=== PATIENT | male | born 1970 | race Two or more races ===

== ENCOUNTER 2024-12-30 19:37 | Inpatient (IN) | payer MEDICAID, SELFPAY ==
[2024-12-30 21:04] VITALS: BP 139/92; PULSE 84; RESP 20; TEMP 37.1; O2SAT 97
--- NOTE | 2024-12-30 21:20 | XR_ITS ---
Examination: CT brain head without contrast. 2-D sagittal coronal reconstructions Date and time of exam:December 30, 2024 1025 hrs. Indications: Onset headaches today Comparison: January 20, 2009 CTDI: vol (mGy):47 DLP: (mGycm):908 Technique: Multiple CT axial sections of the brain have been obtained, 5 mm slice thickness. Contrast has not been administered. 2-D sagittal, coronal reconstructions have been obtained Low dose protocols were performed. One or more of the following dose reduction techniques were used; automated exposure control, adjustment of the mA and/or KV according to patient size, use of iterative reconstruction technique. Findings: No significant ventricular enlargement. Intra-axial or extra-axial hemorrhage density is not seen. No mass effect or midline shift Basal cisterns are not remarkable. Fourth ventricle is midline. Cranial vault intact. Mild chronic ethmoid sphenoid sinusitis Impression: Negative for acute hemorrhage, mass effect or midline shift
--- NOTE | 2024-12-30 21:22 | PD.EDRME ---
Rapid Medical Screening Exam RME Arrival date/time: 12/30/24 19:37 This is a case of 54-year-old male with history of EtOH came in in the emergency room due to headache nausea vomiting dizziness and blurring of vision patient just took alcohol today approximately 6 beers persistence of the symptoms this patient decided to start consult here in the emergency room Chief Complaint: General Adult/Misc Complain Time Seen by Provider: 12/30/24 19:54 Vital signs: Vital Signs Temperature 98.8 F 12/30/24 21:04 Pulse Rate 84 12/30/24 21:04 Respiratory Rate 20 12/30/24 21:04 Blood Pressure 139/92 H 12/30/24 21:04 Pulse Oximetry (%) 97 12/30/24 21:04 Oxygen Delivery Method Room Air 12/30/24 21:04
[2024-12-30 21:57] LABS: Lactate (Lactic Acid) 1.4 mMol/L (0.4-2.0)
[2024-12-30 22:01] LABS: Basophils # (Auto) 0.0 Thou/mm3 (0.0-0.2); Basophils % (Auto) 0 % (0-2.5); Eosinophils # (Auto) 0.0 Thou/mm3 (0.0-0.5); Eosinophils % (Auto) 0 % (0-10); Hematocrit 38.2 % (41.0-53.0); Hemoglobin 13.9 g/dL (13.5-16.0); Immature Granulocytes Auto 0.04 Thou/mm3 (0.00-0.00); Lymphocytes # (Auto) 0.6 Thou/mm3 (1.0-4.8); Lymphocytes % (Auto) 6 % (10-50); Mean Corpuscular HGB Conc 36.4 g/dl (31.0-37.0); Mean Corpuscular Hemoglobin 29.5 pg (25.0-35.0); Mean Corpuscular Volume 81 fL (80-100); Monocytes # (Auto) 0.6 Thou/mm3 (0.0-0.8); Monocytes % (Auto) 6 % (0-12); Neutrophils # (Auto) 8.6 Thou/mm3 (1.8-7.7); Neutrophils % (Auto) 88 % (37-80); Nucleated Red Blood Cell # 0.00 Thou/mm3 (0.00-0.00); Nucleated Red Blood Cell % 0 /100 WBC (0); Platelet Count 116 Thou/mm3 (140-440); RDW Standard Deviation 34.9 fL (35.1-43.9); Red Blood Count 4.71 Miln/mm3 (4.50-5.90); White Blood Count 9.9 Thou/mm3 (3.8-10.6)
[2024-12-30 22:18] LABS: Alanine Aminotransferase 76 U/L (10-49); Albumin, Serum 4.1 gm/dL (3.5-5.0); Albumin/Globulin Ratio 1.7 (1.2-2.2); Alcohol, Blood Medical < 3.0 mg/dL (0-10.0); Alkaline Phosphatase 142 U/L (46-116); Anion Gap 10 (7-16); Aspartate Amino Transferase 115 U/L (0-34); BUN/Creatinine Ratio 6 Ratio (12-20); Bilirubin,Total 1.7 mg/dL (0.3-1.2); Blood Urea Nitrogen 5 mg/dL (9-23); Calcium 8.4 mg/dL (8.3-10.6); Calcium (Corrected) 8.4 mg/dL (8.5-10.1); Carbon Dioxide 27.7 mMol/L (20.0-31.0); Chloride 82 mMol/L (98-107); Creatinine (Component) 0.8 mg/dL (0.6-1.3); Globulin 2.4 gm/dL (2.3-3.5); Glucose 206 mg/dL (74-106); LDH (Lactate Dehydrogenase) 415 U/L (120-246); Osmolality,Calculated 245 (275-295); Potassium 3.4 mMol/L (3.4-5.1); Sodium 120 mMol/L (136-145); Total Protein 6.5 gm/dL (5.7-8.2); eGFR > 60 See Note
[2024-12-31] VITALS (9 sets, daily range): BP systolic 115–166; BP diastolic 76–89; PULSE 69–89; RESP 16–19; TEMP 36.4–37.6; O2SAT 95–100; BMI 26.5
[2024-12-31 00:16] LABS: Collection Type, Urine Voided; Squamous Epithelial Cell,Urine 0 /hpf (0-5)
[2024-12-31 00:28] LABS: Amphetamine/Methamp Scrn,U Negative (Negative); Barbiturate Screen,Urine Negative (Negative); Benzodiazepines Screen,Urine Negative (Negative); Benzoylecgonine Screen, Ur Negative (Negative); Fentanyl Screen,Urine Negative (Negative); Opiate Screen,Urine Negative (Negative); THC Screen,Urine Negative (Negative)
[2024-12-31 00:31] LABS: Bacteria,Urine Rare; Bilirubin,Urine Negative (Negative); Blood,Urine 1+ (Negative); Clarity,Urine Clear (Clear/Hazy); Color,Urine Yellow (Lt Yel-Yel); Glucose, Urine 4+ (Negative); Ketones,Urine 1+ (Negative); Leukocyte Esterase,Urine Negative (Negative); Nitrite,Urine Negative (Negative); PH,Urine 7.0 (5.0-7.0); Protein,Urine 1+ (Neg - Trace); RBC,Urine 2 /hpf (0-3); Specific Gravity,Urine 1.017 (1.001-1.035); Urobilinogen,Urine Negative mg/dL (0.0-1.0); WBC,Urine < 1 /hpf (0-5)
--- NOTE | 2024-12-31 00:37 | EDNOTE_ITS ---
ED General RME/HPI General Chief complaint: Alcohol Stated complaint: ETOH Time Seen by Provider: 12/30/24 19:54 Arrival date/time: 12/30/24 19:37 RME / HPI RME / HPI narrative: 12/30/24 19:37 This is a case of 54-year-old male with history of EtOH came in in the emergency room due to headache nausea vomiting dizziness and blurring of vision patient just took alcohol today approximately 6 beers persistence of the symptoms this patient decided to start consult here in the emergency room Mr Brown is a 54-year-old male past medical significant for alcohol use disorder, anxiety, hypertension and migraines who presented to [facility] on 12/30/2024 with chief complaint of nausea, vomiting, headache, dizziness. He complains of a 3-day history of headache, nausea, vomiting, dizziness, and blurry vision. Headaches are on the occipital area. Dizziness associated weakness, last visit generalized weakness for which he has difficulty standing up without assistance. He reports having experienced 3 episodes of ground-level fall, with no loss of consciousness, urinary, or bowel incontinence. He admits to consuming an average of 17 beers per day. His last drink was at approximately 4 pm yesterday, consisting of 4-6 cans of beer. Related Data Allergies Allergy/AdvReac Type Severity Reaction Status Date / Time No Known Allergies Allergy Mild Uncoded 11/20/08 16:15 Review of Systems Review of Systems Systems Reviewed: All systems reviewed, normal except as documented Past Medical History Past Medical History Comments PMH COMMENT: PMH: Positive for alcohol use disorder, anxiety, hypertension and migraines PSHx: Denies Allergies: NKDFA Social history: -Smoking: Denies -Alcohol Use: Started drinking since he was 18 years old, averaging 12 through 17 beer per day. -Illicit Drug Use: Denies -Occupation: Production Intern Family History: No relevant [facility] ED Exam Narrative Physical exam: Physical Exam General: Awake, anxious. Conversational and non-toxic appearing. HEENT: Normocephalic, atraumatic, mucous membranes moist. Heart: Regular rate and rhythm, no murmurs. Lungs: Clear to auscultation with no wheezing or crackles. Abdomen: Soft, nondistended, nontender, positive bowel sounds. ?No guarding or rebound tenderness. Neurologic: Alert and oriented x3, no gross neurological deficit, and patient able to move all 4 extremities. Extremities: No edema. Tremors BUE. Course Quality Measures none Orders Category Date Time Status COVID-19 Screening Questionnaire NOW Care 12/31/24 00:44 Active Spent Grain Dryer Q4H START 00 Care 12/31/24 00:33 Active Continuous Pulse Oximetry NOW Care 12/31/24 00:33 Completed Decision to Admit X1 Care 12/31/24 00:44 Completed EKG (ED ONLY) *Do not use* NOW Care 12/31/24 01:22 Completed Insert IV NOW Care 12/31/24 00:33 Active Nurse Swallow Screen X1 Care 12/31/24 00:34 Active Strict Intake and Output Routine Care 12/31/24 00:[address] head/brain wo con Stat Exams 12/30/24 21:20 Completed EKG (ED Only) Stat Exams 12/31/24 01:22 Draft Alcohol, Blood Medical Stat Lab 12/30/24 21:41 Completed CBC Stat Lab 12/30/24 21:41 Completed CMP [Comprehensive Metabolic Panel] Stat Lab 12/30/24 21:41 Completed Creatinine,Random Urine Stat Lab 12/31/24 00:20 Completed Drug Screen,Urine Stat Lab 12/31/24 00:11 Completed Electrolytes, Urine Random Stat Lab 12/31/24 00:20 Completed LDH (Lactate Dehydrogenase) Stat Lab 12/30/24 21:41 Completed Lactic Acid [Lactate (Lactic Acid)] Stat Lab 12/30/24 21:41 Completed Urea Nitrogen, Random Urine Stat Lab 12/31/24 00:20 Completed Urinalysis Stat Lab 12/31/24 00:11 Completed LORazepam [Ativan] Med 12/31/24 00:34 Discontinued 1 mg PO X1 ONE Sodium Chloride 0.9% 1000 ml [Ns] 1,000 ml Med 12/31/24 00:33 Discontinued IV 65 mls/hr Vital Signs Vital signs: Vital Signs Temperature 98.8 F 12/30/24 21:04 Pulse Rate 84 12/30/24 21:04 Respiratory Rate 20 12/30/24 21:04 Blood Pressure 139/92 H 12/30/24 21:04 Pulse Oximetry (%) 97 12/30/24 21:04 Oxygen Delivery Method Room Air 12/30/24 21:04 Discharge Plan Problem List Clinical Impression: Acute hyponatremia, Alcohol withdrawal syndrome MDM Narrative MDM hospital course (for use when minimal MDM required): #Moderate hypoosmolar hypovolemic hyponatremia #Suspicion of beer potomania #Alcohol dependence with withdrawal #Transaminitis, suspicion of alcoholic cirrhosis 54-year-old male with past medical history as above presented with dizziness headache nausea vomiting and blurry vision Workup: CBC showed hemoglobin stable 13.9, WBC 9.9, platelet 116 CMP shows sodium 120, glucose 206, chloride 82 renal function within normal limits, corrected calcium 8.4, AST 115, ALT 76, alk phos 142, LDH 415 Urinalysis shows 1+ protein, glucose 4+, ketones 1+, blood 1+ Urine electrolytes ordered Urine drug screen and blood alcohol level normal CT head negative for acute hemorrhage mass effect or midline shift Case discussed with hospitalist team for admission regarding alcohol withdrawal and hyponatremia management. Hospitalist team agrees to admit patient Case discussed with Attending Physician Dr. Jaydon Childress MD Internal Medicine PGY-2 Disclaimer: This note was dictated by speech recognition. Minor errors in airplane cover maker may be present due to voice recognition software. Clinical Information Provided by: patient and family Medical Records reviewed None Meds/Rx considered, not ordered None Labs/Rad/Tests considered, not ordered None Chronic Illness/Social Conditions which may negatively complicate care or outcome(s)-explain: ETOH/drugs/substance abuse EKG EKG not done Labs Lab(s) Interpretation(s): CBC showed hemoglobin stable 13.9, WBC 9.9, platelet 116 CMP shows sodium 120, glucose 206, chloride 82 renal function within normal limits, corrected calcium 8.4, AST 115, ALT 76, alk phos 142, LDH 415 Urinalysis shows 1+ protein, glucose 4+, ketones 1+, blood 1+ Urine electrolytes ordered Urine drug screen and blood alcohol level normal Imaging Imaging Interpretation(s): CT head negative for acute hemorrhage mass effect or midline shift Medication Administration(s) Medication Administration History Chlordiazepoxide HCl (Chlordiazepoxide Hcl 25 Mg Capsule) 25 mg PO Q8HR [facility] Stop: 01/05/25 05:59 Dextrose (Dextrose 50%-Water Inj 50 Ml Syringe) 25 ml IV Q15MIN PRN PRN Reason: BG 50-70 responsive npo pt Stop: 01/30/25 01:38 Dextrose (Dextrose 50%-Water Inj 50 Ml Syringe) 50 ml IV Q15MIN PRN PRN Reason: BG <50 OR BG <70 & pt unresponsive Stop: 01/30/25 01:38 Diazepam (Diazepam Inj 5 Mg/Ml Vial 2 Ml) 5 mg IVP Q2HR PRN PRN Reason: CIWA SCORE 14-19 Stop: 01/05/25 01:45 Diazepam (Diazepam Inj 5 Mg/Ml Vial 2 Ml) 5 mg IVP Q2H PRN PRN Reason: Breakthrough Agitation Folic Acid (Folic Acid 1 Mg Tablet) 1 mg PO QDAY [facility] Stop: 01/30/25 02:09 Last Admin: 12/31/24 02:28 Dose: 1 mg Documented By: NGUYEN Glucagon (Glucagon Inj 1 Mg Vial) 1 mg IM Q15MIN PRN PRN Reason: BG <70, and no IV access Ceftriaxone Sodium/Dextrose (Rocephin/D5w 1gm Iv Premix) 1 gm in 50 mls @ 100 mls/hr IV QDAY [facility] Stop: 01/07/25 08:59 Sodium Chloride 500 ml/ IV (Miscellaneous Supplies) 500 mls @ 40 mls/hr IV X1 ONE Stop: 12/31/24 15:15 Last Admin: 12/31/24 03:28 Dose: 40 mls/hr Documented By: ELMER Potassium Phosphate 22.5 mmol/ (Sodium Chloride) 507.5 mls @ 82.778 mls/hr IV X1 ONE Stop: 12/31/24 08:55 Insulin Human Lispro (Insulin Lispro (Admelog) 1 Unit/0.01 Ml Unit) 0 unit SC Q 6H [facility]; Protocol Stop: 01/30/25 01:44 Last Admin: 12/31/24 02:16 Dose: 1 unit Documented By: NGUYEN Co-signed By: CRISTY Ondansetron HCl (Ondansetron Inj 2 Mg/Ml Inj 2 Ml) 4 mg IVP Q6H PRN; Protocol PRN Reason: NAUSEA OR VOMITING Stop: 01/30/25 01:28 Pantoprazole Sodium (Pantoprazole Inj 40 Mg Vial) 40 mg IVP BID [facility] Stop: 01/30/25 01:29 Last Admin: 12/31/24 02:16 Dose: 40 mg Documented By: NGUYEN Thiamine HCl (Thiamine Inj 100 Mg/Ml Vial 2 Ml) 100 mg IVP QDAY [facility] Stop: 01/30/25 08:59 Discontinued Medications Diazepam (Diazepam Inj 5 Mg/Ml Vial 2 Ml) 2.5 mg IVP Q2H PRN PRN Reason: Breakthrough Agitation Folic Acid (Folic Acid 1 Mg Tablet) 1 mg PO QDAY [facility] Stop: 01/30/25 08:59 Sodium Chloride (Ns) 1,000 mls @ 65 mls/hr IV .[id number] [facility] Stop: 01/30/25 00:32 Last Infusion: 12/31/24 01:55 Dose: Infused Documented By: Admin: 12/31/24 00:47 Dose: 65 mls/hr Documented By: NGUYEN Sodium Chloride 50 ml/ IV (Miscellaneous Supplies) 50 mls @ 300 mls/hr IV X1 ONE Stop: 12/31/24 01:38 Last Infusion: 12/31/24 02:42 Dose: Infused Documented By: Admin: 12/31/24 02:18 Dose: 300 mls/hr Documented By: NGUYEN Thiamine HCl 500 mg/ Sodium (Chloride) 105 mls @ 205 mls/hr IV X1 ONE Stop: 12/31/24 02:15 Last Infusion: 12/31/24 03:22 Dose: Infused Documented By: Admin: 12/31/24 02:17 Dose: 205 mls/hr Documented By: NGUYEN Lorazepam (Lorazepam 0.5 Mg Tablet) 1 mg PO X1 ONE Stop: 12/31/24 00:35 Last Admin: 12/31/24 00:47 Dose: 1 mg Documented By: NGUYEN As Above Diagnosis Differential Diagnosis ED Complaint MDM: Alcohol dependence with withdrawal, symptomatic hyponatremia Diagnoses ruled out and/or further discussions: Symptomatic hyponatremia
[2024-12-31] MEDS: SODIUM CHLORIDE 0.9% 1000 ML 1,000 ML 65 ML IV (00:47)
[2024-12-31 01:20] LABS: Chloride,Urine Random 80.1 mMol/L (55.0-125.0); Creatinine,Random Urine 111 mg/dL (30-125); Potassium,Urine Random 54 mMol/L (12-62); Sodium,Urine Random 85.4 mMol/L (20.0-110.0); Urea Nitrogen, Random Urine 315.0 mg/dL (350.0-1000.0)
--- NOTE | 2024-12-31 01:22 | EKG_ITS ---
[facility] Test Date: 2024-12-31 Pat Name: JANELLE DUMONT Department: Room: - Gender: Male [employer]: : 1970 Requested By: Juan Bautista Order Number: [id number] Reading MD: Juan Bautista Measurements Intervals [place] Rate: 82 P: 57 KS: 165 QRS: 73 QRSD: 94 T: 64 QT: 390 QTc: 458 Interpretive Statements SINUS RHYTHM No previous ECG available for comparison /store/S0/[id number]/ecg/[id number].pdf
--- NOTE | 2024-12-31 01:51 | XR_ITS ---
Examination: Abdomen sonogram, Limited Date and time of exam: December 31, 2024, 0203 hrs. Indications: Abdominal pain today Technique: Real-time goodman scale transabdominal sonographic images of the upper abdomen obtained. Findings: Normal gallbladder. Normal common bile duct 0.4 cm Pancreatic head 2.0 cm Liver 12.7 cm fatty infiltration Normal hepatopedal portal venous flow Patent IVC Impression: Normal gallbladder
--- NOTE | 2024-12-31 01:56 | ESHP_ITS ---
Documentation for date of: 12/31/24 [facility] History of Present Illness History of present illness: Patient is a 54-year-old male past medical significant for alcohol use disorder, anxiety, hypertension presented to the ED on 12/30/2024 with chief complaint of nausea, vomiting, headache, dizziness. The patient presents with a 3-day history of headache, nausea, vomiting, dizziness, and blurry vision. Headaches are on the occipital area. Dizziness associated weakness, last visit generalized weakness for which he has difficulty standing up without assistance. He reports having experienced 3 episodes of ground-level fall, with no loss of consciousness, urinary, or bowel incontinence. The patient admits to consuming an average of 17 beers per day. His last drink was at approximately 4 pm yesterday, consisting of 4-6 cans of beer. Regarding the vomiting, the patient noted the presence of blood in his emesis but denies any dark stools or hematochezia. The patient's brother, who was present at the bedside, shared that he brought the patient back from [place] several months ago due to concerns about the patient's excessive drinking. The patient's family and friends had expressed concern about his alcohol use, prompting his brother to seek further treatment for him. In addition, the patient reports experiencing visual and auditory hallucinations, specifically hearing his brother's voice when he is drunk. The patient denies chest pain, shortness of breath, abdominal pain, fever, chills, melena, or hematochezia. Patient currently does not have a primary care provider in [place] that he follows. Patient is aware about his clinical presentation, and is interested in help with his alcohol dependence. ED Course: -Initial vitals were BP 139/92, pulse 84, RR 20, temp 98.8, O2 sat 97% on room air. -Labs significant for sodium 120, osmolality 245,chloride 82, glucose 206, bili 1.7, AST 115, ALT 76 -Imaging included a CT head negative for acute hemorrhage. EKG showed sinus rhythm -In the ED, patient was given 0.5 L of NS and ativan 1 mg x 1 -Patient was admitted for Review of Systems Review of systems otherwise negative except what is mentioned above. Past Medical History: Hypertension, anxiety Family History: Not contributory Surgical History: None Social History: Denies history of smoking, denies recreational drug use. Started drinking since he was 18 years old, averaging 12 through 17 beer per day. Current Medications: Antihypertensive (but patient is not sure) Allergies: No known drug allergies Exam Vital Signs Temp Pulse Resp BP Pulse Ox O2 Del Method 99.0 F 88 16 166/89 H 100 Room Air 12/31/24 00:14 12/31/24 00:36 12/31/24 00:14 12/31/24 00:14 12/31/24 00:14 12/31/24 00:14 Narrative Exam General: Alert, no acute distress.Conversational, toxic appearing, flushed Skin: Warm, dry, intact. No rash or ecchymoses. Head: Normocephalic, atraumatic. Eye: Injected conjunctiva, negative for papilledema on funduscopy exam PERRL. Throat: Dry mucosa moist. No obvious lesions in oropharynx. Cardiovascular: Regular rate and rhythm, no murmur, +S1/S2. Respiratory: Lungs are clear to auscultation, respirations unlabored, no crackles, no wheezing. Gastrointestinal: Soft, nontender, non-distended. No guarding or rebound tenderness. Extremities: No edema, no cyanosis, no clubbing. Neuro: Alert and oriented x3.No focal deficits observed. Conversant, moving all extremities. No overt cerebellar signs/incoordination. Psychiatric: Cooperative, appropriate affect Results: Labs 01/02/25 05:15 01/02/25 05:15 Labs: Short CBC 12/30/24 Range/Units 21:41 WBC 9.9 (3.8-10.6) Thou/mm3 Hgb 13.9 (13.5-16.0) g/dL Hct 38.2 L (41.0-53.0) % Plt Count 116 L (140-440) Thou/mm3 BMP 12/30/24 21:41 Sodium 120 L Potassium 3.4 Chloride 82 L Carbon Dioxide 27.7 BUN 5 L Creatinine 0.8 Glucose 206 H Calcium 8.4 Liver Function 12/30/24 Range/Units 21:41 Total Bilirubin 1.7 H (0.3-1.2) mg/dL AST 115 H (0-34) U/L ALT 76 H (10-49) U/L Alkaline Phosphatase 142 H (46-116) U/L Albumin 4.1 (3.5-5.0) gm/dL Urine 12/31/24 Range/Units 00:11 Urine Color Yellow (Lt Yel-Yel) Urine Clarity Clear (Clear/Hazy) Urine pH 7.0 (5.0-7.0) Ur Specific [place] 1.017 (1.001-1.035) Urine Protein 1+ A (Neg - Trace) Urine Glucose (UA) 4+ A (Negative) Quality Measures Quality Measures VTE prophylaxis Medications Home Medications and Allergies Allergies Allergy/AdvReac Type Severity Reaction Status Date / Time No Known Allergies Allergy Unverified 12/31/24 10:33 Visit Medications Dextrose (Dextrose 50%-Water Inj 50 Ml Syringe) 25 ml IV Q15MIN PRN PRN Reason: BG 50-70 responsive npo pt Stop: 01/30/25 01:38 Dextrose (Dextrose 50%-Water Inj 50 Ml Syringe) 50 ml IV Q15MIN PRN PRN Reason: BG <50 OR BG <70 & pt unresponsive Stop: 01/30/25 01:38 Diazepam (Diazepam Inj 5 Mg/Ml Vial 2 Ml) 5 mg IVP Q2HR PRN PRN Reason: CIWA SCORE 14-19 Stop: 01/05/25 01:45 Diazepam (Diazepam Inj 5 Mg/Ml Vial 2 Ml) 2.5 mg IVP Q2H PRN PRN Reason: Breakthrough Agitation Folic Acid (Folic Acid 1 Mg Tablet) 1 mg PO QDAY [facility] Stop: 01/30/25 08:59 Glucagon (Glucagon Inj 1 Mg Vial) 1 mg IM Q15MIN PRN PRN Reason: BG <70, and no IV access Sodium Chloride 50 ml/ IV (Miscellaneous Supplies) 50 mls @ 300 mls/hr IV X1 ONE Stop: 12/31/24 01:38 Thiamine HCl 500 mg/ Sodium (Chloride) 105 mls @ 205 mls/hr IV X1 ONE Stop: 12/31/24 02:15 Insulin Human Lispro (Insulin Lispro (Admelog) 1 Unit/0.01 Ml Unit) 0 unit SC Q6H [facility]; Protocol Stop: 01/30/25 01:44 Ondansetron HCl (Ondansetron Inj 2 Mg/Ml Inj 2 Ml) 4 mg IVP Q6H PRN; Protocol PRN Reason: NAUSEA OR VOMITING Stop: 01/30/25 01:28 Pantoprazole Sodium (Pantoprazole Inj 40 Mg Vial) 40 mg IVP BID [facility] Stop: 01/30/25 01:29 Thiamine HCl (Thiamine Inj 100 Mg/Ml Vial 2 Ml) 100 mg IVP QDAY [facility] Stop: 01/30/25 08:59 Discontinued Medications Sodium Chloride (Ns) 1,000 mls @ 65 mls/hr IV .[id number] [facility] Stop: 01/30/25 00:32 Last Admin: 12/31/24 00:47 Dose: 65 mls/hr Lorazepam (Lorazepam 0.5 Mg Tablet) 1 mg PO X1 ONE Stop: 12/31/24 00:35 Last Admin: 12/31/24 00:47 Dose: 1 mg Assessment & Plan Plan Patient is a 54-year-old male past medical significant for alcohol use disorder, anxiety, hypertension presented to the ED on 12/30/2024 with chief complaint of nausea, vomiting, headache, dizziness. Admitted for management evaluation of symptomatic hyponatremia and alcohol withdrawal. #Symptomatic hyponatremia 2/2 #Beer Potomania #Alcohol withdrawal #Alcohol use disorder, chronic #Transaminits Patient presented with headache, nausea, vomiting, dizziness and generalized weakness. On physical examination conjunctival injection, look flushed, severely dehydrated. Has chronic history of alcohol use disorder, drinks average 12-17 beers can per day. CHEM panel significant for hyponatremia with sodium of 120, chloride 82, osmolality 245, T. bili 1.7. Urine sodium 85.4. HypoNa secondary to beer potomania, with the patient history of heavy beer consumption causes severe dilutional hyponatremia impaired body ability to regulate water and fluid balance. Leading to symptoms such as nausea, vomiting, and headache, weakness patient. Na corrected to 122 with on 500cc hypertonic push- 122> 123> 128- stops hypertonic IVF AST 115, ALT 73 indicating possible alcohol hepatitis. CIWA 10. 500cc hypertonic NS at 40mls/hr-stop at Ba 129 - Started IV NS at 75mls/hr - Na [id number] change to Q4H when Na 130 - Fluid restriction - Strict ins and outs - Started CIWA protocol - Protonix 40 mg IV BID - Zofran 4 mg Q6h prn - Abdominal ultrasound ordered, pending read - Nephrology consulted-recommendation appreciated - Ammonia, pending - Thiamine 100mg IVP Qday - Folic acid 1 mg daily - Encourage alcohol cessation #Upper versus lower GI bleed #Hematemesis DDX: esophageal varices vs josefa-aguillon tear vs liver cirrhosis Concern for possible esophageal failure given the patient hematemesis in the setting of chronic alcohol use. Cirrhosis given patient history chronic alcohol consumption is a well-established rish factor that may lead to liver cirrhosis/ fibrosis. Current H&H is stable - Hepatitis panel, pending - Stool occult ordered, pending - Diet n.p.o. - GI consulted-recommendation appreciated - Type and screen - Monitor H&H - Transfusing for Hgb <7 or symptomatic. - Follow-up INR and PTT #History of anxiety #History of hypertension Chronic condition, patient is on no medication for anxiety. Does not recalled anti-hypertensive meds -Continue to monitor vitals -Pending med recc Hospital management: Lines: peripheral IV Diet: NPO GI prophylaxis: pantoprazole DVT prophylaxis: SCDs Disposition: tele symptomatic management and alcohol use disorder evaluation and management CODE STATUS: Full code Patient seen and assessed under supervision of attending physician Dr.Alhalaibeh Kimi Linares MD PGY-1, Internal Medicine Please note: this document was transcribed using voice recognition technology; minor inaccuracies may be present. Attending Provider Attestation/Addendum After examination of the patient and review of the clinical data I feel that this patient needs admission to the hospital for further treatment/evaluation. Plan of care discussed with patient and is in agreement. I Asmita Briggs MD, attest that I was physically present for mckeon portions of evaluation, and examined patient, labs and imagings and plan of care were discussed with IM residents team, and I agree with the findings and plans documented above.
[2024-12-31] MEDS: INSULIN LISPRO (AdmeLOG) 1 UNIT/0.01 ML UNIT SC (02:16)
[2024-12-31] MEDS: THIAMINE INJ 500 MG in SODIUM CHLORIDE 0.9% 100 ML 205 MG IV (02:17)
[2024-12-31] MEDS: SODIUM CHLORIDE 3%(Hypertonic) 50 ML in PRE-MIXED 1 BAG 300 ML IV (02:18)
[2024-12-31] MEDS: FOLIC ACID 1 MG TABLET PO (02:28)
[2024-12-31 02:32] LABS: Glucose Estimated Average 128 mg/dL (80-131); Hemoglobin A1C 6.1 % Hgb (4.8-6.0)
[2024-12-31 02:42] LABS: Folate 21.55 ng/mL (>5.38); Magnesium 1.9 mg/dL (1.6-2.6); Phosphorous 2.2 mg/dL (2.4-5.1); Sodium 122 mMol/L (136-145); Thyroid Stimulating Hormone 1.19 uIU/mL (0.55-4.78); Vitamin B12 1345 pg/mL (211-911)
[2024-12-31 03:25] LABS: Sodium 123 mMol/L (136-145)
[2024-12-31] MEDS: SODIUM CHLORIDE 3%(Hypertonic) 500 ML in PRE-MIXED 1 BAG 40 ML IV (03:28)
--- NOTE | 2024-12-31 03:50 | PC.NURSE ---
DR RIDER MADE AWARE THAT WE DID NOT HAVE POTASSIUM PHOSPHATE 22.5 MMOL IN STOCK.
[2024-12-31 05:38] LABS: Basophils # (Auto) 0.0 Thou/mm3 (0.0-0.2); Basophils % (Auto) 0 % (0-2.5); Eosinophils # (Auto) 0.0 Thou/mm3 (0.0-0.5); Eosinophils % (Auto) 0 % (0-10); Hematocrit 35.2 % (41.0-53.0); Hemoglobin 13.1 g/dL (13.5-16.0); Immature Granulocytes Auto 0.03 Thou/mm3 (0.00-0.00); Lymphocytes # (Auto) 1.0 Thou/mm3 (1.0-4.8); Lymphocytes % (Auto) 9 % (10-50); Mean Corpuscular HGB Conc 37.2 g/dl (31.0-37.0); Mean Corpuscular Hemoglobin 30.4 pg (25.0-35.0); Mean Corpuscular Volume 82 fL (80-100); Monocytes # (Auto) 0.8 Thou/mm3 (0.0-0.8); Monocytes % (Auto) 8 % (0-12); Neutrophils # (Auto) 8.3 Thou/mm3 (1.8-7.7); Neutrophils % (Auto) 82 % (37-80); Nucleated Red Blood Cell # 0.00 Thou/mm3 (0.00-0.00); Nucleated Red Blood Cell % 0 /100 WBC (0); Platelet Count 93 Thou/mm3 (140-440); RDW Standard Deviation 35.8 fL (35.1-43.9); Red Blood Count 4.31 Miln/mm3 (4.50-5.90); White Blood Count 10.2 Thou/mm3 (3.8-10.6)
[2024-12-31 05:58] LABS: Ammonia 33 uMol/L (11-32)
[2024-12-31 06:07] LABS: Alanine Aminotransferase 62 U/L (10-49); Albumin, Serum 3.7 gm/dL (3.5-5.0); Albumin/Globulin Ratio 1.8 (1.2-2.2); Alkaline Phosphatase 119 U/L (46-116); Anion Gap 10 (7-16); Aspartate Amino Transferase 89 U/L (0-34); BUN/Creatinine Ratio 8 Ratio (12-20); Bilirubin,Total 1.4 mg/dL (0.3-1.2); Blood Urea Nitrogen 6 mg/dL (9-23); Calcium 8.1 mg/dL (8.3-10.6); Calcium (Corrected) 8.3 mg/dL (8.5-10.1); Carbon Dioxide 27.5 mMol/L (20.0-31.0); Chloride 91 mMol/L (98-107); Creatinine (Component) 0.8 mg/dL (0.6-1.3); Estimated Creatinine Clearance 89.2 mL/min (>60); Globulin 2.1 gm/dL (2.3-3.5); Glucose 94 mg/dL (74-106); Magnesium 2.1 mg/dL (1.6-2.6); Osmolality,Calculated 254 (275-295); Potassium 3.0 mMol/L (3.4-5.1); Sodium 128 mMol/L (136-145); Total Protein 5.8 gm/dL (5.7-8.2); eGFR > 60 See Note
[2024-12-31] MEDS: SODIUM CHLORIDE 0.9% 1000 ML 1,000 ML 75 ML IV (06:33)
[2024-12-31 06:41] LABS: Sodium 128 mMol/L (136-145)
[2024-12-31 07:06] LABS: Hepatitis A Antibody IgM Non Reactive (Non React); Hepatitis B Core Antibody IgM Non Reactive (Non React); Hepatitis B Surface Antigen Non Reactive (Non React)
[2024-12-31 07:48] LABS: Sodium 129 mMol/L (136-145)
[2024-12-31] MEDS: THIAMINE INJ 100 MG/ML VIAL 2 ML IVP (08:10)
[2024-12-31] MEDS: cefTRIAXone/D5w 1gm IV premix 1 GM/50 ML BAG IV (08:11)
[2024-12-31] MEDS: POTASSIUM PHOS 22.5 MMOL in SODIUM CHLORIDE 0.9% 500 ML 500 ML 82.778 MMOL IV (08:49)
[2024-12-31] MEDS: DEXTROSE 5%-WATER 1,000 ML 60 ML IV (10:37)
[2024-12-31 11:21] LABS: Albumin, Serum 3.6 gm/dL (3.5-5.0); Anion Gap 9 (7-16); BUN/Creatinine Ratio 8 Ratio (12-20); Blood Urea Nitrogen 6 mg/dL (9-23); Calcium 7.9 mg/dL (8.3-10.6); Calcium (Corrected) 8.2 mg/dL (8.5-10.1); Carbon Dioxide 26.6 mMol/L (20.0-31.0); Chloride 93 mMol/L (98-107); Creatinine (Component) 0.8 mg/dL (0.6-1.3); Estimated Creatinine Clearance 82.5 mL/min (>60); Glucose 103 mg/dL (74-106); Osmolality,Calculated 256 (275-295); Phosphorous 3.3 mg/dL (2.4-5.1); Potassium 3.1 mMol/L (3.4-5.1); Sodium 129 mMol/L (136-145); eGFR > 60 See Note
[2024-12-31 12:56] LABS: Sodium 130 mMol/L (136-145)
--- NOTE | 2024-12-31 13:08 | ESPR_ITS ---
<Statement entered by Jerome Quintanilla MD - 12/31/24 20:13> Overnight admission for hyponatremia, alcohol withdrawal, and GI bleed. Seen and examined at bedside and CIWA score of 2-3 for anxiety and headache. Na remains difficult to control given that he had increase more than 6 mEq in 24 hours and peaked at 130. Given overcorrection we will start D5W with goal of less than 130 given that this is hospital day 2. Nephrology also following for hyponatremia. Continue CIWA protocol, and GI consulted for GI bleed. ----- Note reviewed and agree with care plan as documented. Please refer to the note below for further details. Plan discussed with attending physician Dr. Jaleel Quintanilla MD PGY-2 Internal Medicine Documentation for date of: 12/31/24 Subjective Subjective Interval history: Patient was seen and examined at bedside. No acute events took place overnight. Patient complains of headache, agitation, anxiety. Noted to have tremors. Denies heightened sensitivity to light or noise. Improved nausea or vomiting. Patient lives in [place] and has been traveling to [place] to visit brother who is accompanying the patient. Had last drink yesterday late afternoon. CIWA 11. Exam Vital Signs Temp Pulse Resp BP Pulse Ox O2 Del Method 98.0 F 75 16 144/85 H 98 Room Air 12/31/24 08:00 12/31/24 08:00 12/31/24 08:00 12/31/24 08:00 12/31/24 08:00 12/31/24 08:00 Narrative Exam General: Alert, no acute distress.Conversational, toxic appearing, flushed Skin: Warm, dry, intact. No rash or ecchymoses. Head: Normocephalic, atraumatic. Eye: Injected conjunctiva, negative for papilledema on funduscopy exam PERRL. Throat: Dry mucosa moist. No obvious lesions in oropharynx. Cardiovascular: Regular rate and rhythm, no murmur, +S1/S2. Respiratory: Lungs are clear to auscultation, respirations unlabored, no crackles, no wheezing. Gastrointestinal: Soft, nontender, non-distended. No guarding or rebound tenderness. Extremities: No edema, no cyanosis, no clubbing. Neuro: Alert and oriented x3.No focal deficits observed. Conversant, moving all extremities. No overt cerebellar signs/incoordination. Psychiatric: Cooperative, appropriate affect Objective Labs 12/31/24 05:23 12/31/24 22:34 Labs: Laboratory Results - last 24 hr 12/30/24 12/31/24 12/31/24 21:41 00:11 00:20 WBC 9.9 RBC 4.71 Hgb 13.9 Hct 38.2 L MCV 81 MCH 29.5 MCHC 36.4 RDW Std Deviation 34.9 L Plt Count 116 L Neut % (Auto) 88 H Lymph % (Auto) 6 L Love % (Auto) 6 Eos % (Auto) 0 Baso % (Auto) 0 Neut # (Auto) 8.6 H Lymph # (Auto) 0.6 L Love # (Auto) 0.6 Eos # (Auto) 0.0 Baso # (Auto) 0.0 Immature Gran # (Auto) 0.04 H Absolute Nucleated RBC 0.00 Immature Gran % 0 Nucleated RBC % 0 Sodium 120 L Potassium 3.4 Chloride 82 L Carbon Dioxide 27.7 Anion Gap 10 BUN 5 L Creatinine 0.8 Estim Creat Clear Calc Not Performed. eGFR > 60 BUN/Creatinine Ratio 6 L Glucose [address] Glu mg/dL Hemoglobin A1c Calculated Osmolality 245 L Lactic Acid 1.4 Calcium 8.4 Corrected Calcium 8.4 L Phosphorus Magnesium Total Bilirubin 1.7 H AST 115 H ALT 76 H Alkaline Phosphatase 142 H Ammonia Lactate Dehydrogenase 415 H Total Protein 6.5 Albumin 4.1 Globulin 2.4 Albumin/Globulin Ratio 1.7 Vitamin B12 Folate TSH Ur Collection Type Voided Urine Color Yellow Urine Clarity Clear Urine pH 7.0 Ur Specific [place] 1.017 Urine Protein 1+ A Urine Glucose (UA) 4+ A Urine Ketones 1+ A Urine Blood 1+ A Urine Nitrite Negative Urine Bilirubin Negative Urine Urobilinogen (Auto) Negative Ur Leukocyte Esterase Negative Urine RBC 2 Urine WBC < 1 Ur Squamous Epith Cells 0 Urine Bacteria Rare Ur Random Creatinine 111 Ur Random Sodium 85.4 Ur Random Potassium 54 Ur Random Chloride 80.1 Ur Random Urea Nitrogn 315.0 L Urine Opiates Screen Negative Urine Fentanyl Screen Negative Ur Barbiturates Screen Negative U Amphetamin/Meth Scrn Negative U Benzodiazepines Scrn Negative U Cocaine Metab Screen Negative U Marijuana (THC) Screen Negative Ethyl Alcohol < 3.0 Hepatitis A IgM Ab Hep Bs Antigen Hep B Core IgM Ab Blood Type Antibody Screen Blood Bank Wristband ID 12/31/24 12/31/24 12/31/24 01:56 03:05 05:23 WBC 10.2 RBC 4.31 L Hgb 13.1 L Hct 35.2 L MCV 82 MCH 30.4 MCHC 37.2 H RDW Std Deviation 35.8 Plt Count 93 L Neut % (Auto) 82 H Lymph % (Auto) 9 L Love % (Auto) 8 Eos % (Auto) 0 Baso % (Auto) 0 Neut # (Auto) 8.3 H Lymph # (Auto) 1.0 Love # (Auto) 0.8 Eos # (Auto) 0.0 Baso # (Auto) 0.0 Immature Gran # (Auto) 0.03 H Absolute Nucleated RBC 0.00 Immature Gran % 0 Nucleated RBC % 0 Sodium 122 L 123 L 128 L Potassium 3.0 L Chloride 91 L Carbon Dioxide 27.5 Anion Gap 10 BUN 6 L Creatinine 0.8 Estim Creat Clear Calc 89.2 eGFR > 60 BUN/Creatinine Ratio 8 L Glucose [address] Glu mg/dL 128 Hemoglobin A1c 6.1 H Calculated Osmolality 254 L Lactic Acid Calcium 8.1 L Corrected Calcium 8.3 L Phosphorus 2.2 L Magnesium 1.9 2.1 Total Bilirubin 1.4 H AST 89 H ALT 62 H Alkaline Phosphatase 119 H D Ammonia 33 H Lactate Dehydrogenase Total Protein 5.8 Albumin 3.7 Globulin 2.1 L Albumin/Globulin Ratio 1.8 Vitamin B12 1345 H Folate 21.55 TSH 1.19 Ur Collection Type Urine Color Urine Clarity Urine pH Ur Specific [place] Urine Protein Urine Glucose (UA) Urine Ketones Urine Blood Urine Nitrite Urine Bilirubin Urine Urobilinogen (Auto) Ur Leukocyte Esterase Urine RBC Urine WBC Ur Squamous Epith Cells Urine Bacteria Ur Random Creatinine Ur Random Sodium Ur Random Potassium Ur Random Chloride Ur Random Urea Nitrogn Urine Opiates Screen Urine Fentanyl Screen Ur Barbiturates Screen U Amphetamin/Meth Scrn U Benzodiazepines Scrn U Cocaine Metab Screen U Marijuana (THC) Screen Ethyl Alcohol Hepatitis A IgM Ab Non Reactive Hep Bs Antigen Non Reactive Hep B Core IgM Ab Non Reactive Blood Type O Positive Antibody Screen NEGATIVE Blood Bank Wristband ID Yes 12/31/24 12/31/24 12/31/24 06:21 07:30 10:40 WBC RBC Hgb Hct MCV MCH MCHC RDW Std Deviation Plt Count Neut % (Auto) Lymph % (Auto) Love % (Auto) Eos % (Auto) Baso % (Auto) Neut # (Auto) Lymph # (Auto) Love # (Auto) Eos # (Auto) Baso # (Auto) Immature Gran # (Auto) Absolute Nucleated RBC Immature Gran % Nucleated RBC % Sodium 128 L 129 L 129 L Potassium 3.1 L Chloride 93 L Carbon Dioxide 26.6 Anion Gap 9 BUN 6 L Creatinine 0.8 Estim Creat Clear Calc 82.5 eGFR > 60 BUN/Creatinine Ratio 8 L Glucose [address] Glu mg/dL Hemoglobin A1c Calculated Osmolality 256 L Lactic Acid Calcium 7.9 L Corrected Calcium 8.2 L Phosphorus 3.3 Magnesium Total Bilirubin AST ALT Alkaline Phosphatase Ammonia Lactate Dehydrogenase Total Protein Albumin 3.6 Globulin Albumin/Globulin Ratio Vitamin B12 Folate TSH Ur Collection Type Urine Color Urine Clarity Urine pH Ur Specific [place] Urine Protein Urine Glucose (UA) Urine Ketones Urine Blood Urine Nitrite Urine Bilirubin Urine Urobilinogen (Auto) Ur Leukocyte Esterase Urine RBC Urine WBC Ur Squamous Epith Cells Urine Bacteria Ur Random Creatinine Ur Random Sodium Ur Random Potassium Ur Random Chloride Ur Random Urea Nitrogn Urine Opiates Screen Urine Fentanyl Screen Ur Barbiturates Screen U Amphetamin/Meth Scrn U Benzodiazepines Scrn U Cocaine Metab Screen U Marijuana (THC) Screen Ethyl Alcohol Hepatitis A IgM Ab Hep Bs Antigen Hep B Core IgM Ab Blood Type Antibody Screen Blood Bank Wristband ID 12/31/24 12:18 WBC RBC Hgb Hct MCV MCH MCHC RDW Std Deviation Plt Count Neut % (Auto) Lymph % (Auto) Love % (Auto) Eos % (Auto) Baso % (Auto) Neut # (Auto) Lymph # (Auto) Love # (Auto) Eos # (Auto) Baso # (Auto) Immature Gran # (Auto) Absolute Nucleated RBC Immature Gran % Nucleated RBC % Sodium 130 L Potassium Chloride Carbon Dioxide Anion Gap BUN Creatinine Estim Creat Clear Calc eGFR BUN/Creatinine Ratio Glucose Estimated Ave Glu mg/dL Hemoglobin A1c Calculated Osmolality Lactic Acid Calcium Corrected Calcium Phosphorus Magnesium Total Bilirubin AST ALT Alkaline Phosphatase Ammonia Lactate Dehydrogenase Total Protein Albumin Globulin Albumin/Globulin Ratio Vitamin B12 Folate TSH Ur Collection Type Urine Color Urine Clarity Urine pH Ur Specific [place] Urine Protein Urine Glucose (UA) Urine Ketones Urine Blood Urine Nitrite Urine Bilirubin Urine Urobilinogen (Auto) Ur Leukocyte Esterase Urine RBC Urine WBC Ur Squamous Epith Cells Urine Bacteria Ur Random Creatinine Ur Random Sodium Ur Random Potassium Ur Random Chloride Ur Random Urea Nitrogn Urine Opiates Screen Urine Fentanyl Screen Ur Barbiturates Screen U Amphetamin/Meth Scrn U Benzodiazepines Scrn U Cocaine Metab Screen U Marijuana (THC) Screen Ethyl Alcohol Hepatitis A IgM Ab Hep Bs Antigen Hep B Core IgM Ab Blood Type Antibody Screen Blood Bank Wristband ID Quality Measures Quality Measures VTE prophylaxis Assessment & Plan Assessment Current Active Medications: Generic Name Dose Route Start Last Admin Trade Name Freq PRN Reason Stop Dose Admin Chlordiazepoxide HCl 25 mg 12/31/24 06:00 12/31/24 06:11 Chlordiazepoxide Hcl 25 Mg Capsule PO 01/05/25 05:59 25 mg Q8HR NICOLAS Administration Dextrose 25 ml 12/31/24 01:39 Dextrose 50%-Water Inj 50 Ml Syringe IV 01/30/25 01:38 Q15MIN PRN BG 50-70 responsive npo pt Dextrose 50 ml 12/31/24 01:39 Dextrose 50%-Water Inj 50 Ml Syringe IV 01/30/25 01:38 Q15MIN PRN BG <50 OR BG <70 & pt unresponsive Diazepam 5 mg 12/31/24 03:06 Diazepam Inj 5 Mg/Ml Vial 2 Ml IVP Q2H PRN Breakthrough Agitation Folic Acid 1 mg 12/31/24 02:10 12/31/24 08:11 Folic Acid 1 Mg Tablet PO 01/30/25 02:09 Not Given QDAY NICOLAS Glucagon 1 mg 12/31/24 01:39 Glucagon Inj 1 Mg Vial IM Q15MIN PRN BG <70, and no IV access Ceftriaxone Sodium/Dextrose 1 gm in 50 mls @ 100 mls/hr 12/31/24 09:00 12/31/24 08:11 Rocephin/D5w 1gm Iv Premix IV 01/07/25 08:59 100 mls/hr QDAY NICOLAS Administration Dextrose 1,000 mls @ 60 mls/hr 12/31/24 10:30 12/31/24 10:37 D5w IV 01/01/25 03:09 60 mls/hr .[id number] ONE Administration Insulin Human Lispro 0 unit 12/31/24 12:00 12/31/24 12:16 Insulin Lispro (Admelog) 1 Unit/0.01 Ml Unit SC 01/30/25 01:44 Not Given Q6HR NICOLAS Protocol Lorazepam 0.5 mg 12/31/24 08:31 Lorazepam 0.5 Mg Tablet PO 01/05/25 08:30 Q4HR PRN CIWA Score 2-6 Lorazepam 1 mg 12/31/24 08:31 12/31/24 08:49 Lorazepam 0.5 Mg Tablet PO 01/05/25 08:30 1 mg Q4HR PRN Administration CIWA SCORE 7-11 Lorazepam 2 mg 12/31/24 08:31 Lorazepam 0.5 Mg Tablet PO 01/05/25 08:30 Q4HR PRN CIWA SCORE 12-15 Ondansetron HCl 4 mg 12/31/24 01:29 Ondansetron Inj 2 Mg/Ml Inj 2 Ml IVP 01/30/25 01:28 Q6H PRN NAUSEA OR VOMITING Protocol Pantoprazole Sodium 40 mg 12/31/24 01:30 12/31/24 08:10 Pantoprazole Inj 40 Mg Vial IVP 01/30/25 01:29 40 mg BID NICOLAS Administration Thiamine HCl 100 mg 12/31/24 09:00 12/31/24 08:10 Thiamine Inj 100 Mg/Ml Vial 2 Ml IVP 01/30/25 08:59 100 mg QDAY NICOLAS Administration Plan Plan Patient is a 54-year-old male past medical significant for alcohol use disorder, anxiety, hypertension presented to the ED on 12/30/2024 with chief complaint of nausea, vomiting, headache, dizziness. Admitted for management evaluation of symptomatic hyponatremia and alcohol withdrawal. #Symptomatic hyponatremia 2/2 #Beer Potomania #Alcohol use disorder, chronic #Transaminits Patient presented with headache, nausea, vomiting, dizziness and generalized weakness. On physical examination conjunctival injection, look flushed, severely dehydrated. Has chronic history of alcohol use disorder, drinks average 12-17 beers can per day. CHEM panel significant for hyponatremia with sodium of 120, chloride 82, osmolality 245, T. bili 1.7. Urine sodium 85.4. HypoNa secondary to beer potomania, with the patient history of heavy beer consumption causes severe dilutional hyponatremia impaired body ability to regulate water and fluid balance. Leading to symptoms such as nausea, vomiting, and headache, weakness patient. Na corrected to 122 with on 500cc hypertonic push- 122> 123> 128- stops hypertonic IVF AST 115, ALT 73 indicating possible alcohol hepatitis. CIWA 10. 500cc hypertonic NS at 40mls/hr-stop at Ba 129 US abdomen: liver 12.7cm fatty infiltration. ammonia 33 (H) - switched to D5W, as it lacks Na, to maintain Na correction 4-6mEQ within 24h (8mEQ max). There had too rapid of correction with NS infusion. - Na checks Q2h - Fluid restriction - Strict ins and outs - Protonix 40 mg IV BID - Zofran 4 mg Q6h prn - Nephrology consulted-recommendation appreciated - Thiamine 100mg IVP Qday x3 followed orally - Folic acid 1 mg daily x3 followed orally - Encourage alcohol cessation - Started CIWA protocol - Chlordiazepoxide 25 mg every 8 hour - Lorazepam 0.5, 1, or 2 mg PRN depending on CIWA score #Upper versus lower GI bleed #Hematemesis DDX: esophageal varices vs [id number]-aguillon tear vs liver cirrhosis Concern for possible esophageal failure given the patient hematemesis in the setting of chronic alcohol use. Cirrhosis given patient history chronic alcohol consumption is a well-established rish factor that may lead to liver cirrhosis/ fibrosis. Current H&H is stable - Hepatitis panel, pending - Stool occult ordered, pending - Diet n.p.o. - GI consulted-recommendation appreciated - pending EGD (01/01) - Type and screen - Monitor H&H - Transfusing for Hgb <7 or symptomatic. - Follow-up INR and PTT #Hypocalcemia Ca++ 8.2 -Ca gluconate IV 1g #History of anxiety #History of hypertension Chronic condition, patient is on no medication for anxiety. Does not recalled anti-hypertensive meds -Continue to monitor vitals Hospital management: Lines: peripheral IV Diet: clear liquid breakfast 01/01 then NPO GI prophylaxis: pantoprazole DVT prophylaxis: SCDs Disposition: tele symptomatic management and alcohol use disorder evaluation and management. Pending EGD. CODE STATUS: Full code Patient seen and assessed under supervision of attending physician Attending Provider Attestation/Addendum I attest that I was physically present for the evaluation, physical examination, lab and imaging review of the patient with the residents. I discussed the case with the residents and agree with the findings and plans of care as documented above. Patient seen and examined at bedside this morning. Appears comfortable and denies any new complaints.. Vital signs are stable. Lab results show hemoglobin of 13.1 changed from 13.9 yesterday. Denies any new nausea or vomiting. Sodium level noted to have up trended to 129 from 120 yesterday. With concern for overcorrection, we will start him on D5W. Nephrology on board, appreciate recommendations. CIWA score this morning was 11, patient is on as needed lorazepam as per CIWA protocol and scheduled chlordiazepoxide. Appears calm at bedside. We will continue with CIWA protocol, and monitor withdrawal symptoms closely. Continues to be on thiamine folate supplement. We will monitor his sodium level closely with goal of 4 to 6 mEq every 24 hours. Continues to be on Protonix for concern for GI bleed. Gastroenterology following closely, appreciate recommendations. Keisha Marmolejo MD
[2024-12-31 14:50] LABS: Sodium 130 mMol/L (136-145)
--- NOTE | 2024-12-31 15:20 | PD.RESCONSUL ---
HPI Data of Consult Consult date: 12/31/24 Requesting Physician: Keisha Marmolejo MD Admitting Provider: Asmita Briggs MD Attending Provider: Keisha Marmolejo MD Primary Care Provider: Physician No Primary/Family Consult Narrative Reason for consult: Hyponatremia History of present illness: History of Present Illness: 54-year-old male past medical significant for alcohol use disorder, anxiety, hypertension, presented to the hosptial on 12/31/2024 due to 3 day history of headache associated with nausea and vomiting, and blurry vision. He describes progressive generalized weakness, to the extent that he required asisstance to stand. During this illness, he experienced 3 ground level falls; denies any loss of consciousness and reports no focal neurologic deficits. He admits to heavy alcohol consumption (approximtely 17 bers daily) and states his last alcoholic drink was yesterday at 4pm. The patient confirms the presence of blood in his vomitus and endorses visual and auditory hallucinations. Denies chest pain, palpation, SOB, abdominal pain, fevers or chills. Patient is admitted for management evaluation of symptomatic hyponatremia and alcohol withdrawal. Nephrology has been consulted for management of hyponatremia. ED Course: -Initial vitals were BP 139/92, pulse 84, RR 20, temp 98.8, O2 sat 97% on room air. -Labs significant for sodium 120, osmolality 245,chloride 82, glucose 206, bili 1.7, AST 115, ALT 76 -Imaging included a CT head negative for acute hemorrhage. EKG showed sinus rhythm -In the ED, patient was given 0.5 L of NS and ativan 1 mg x 1 Past Medical History: Hypertension, anxiety Family History: Not contributory Surgical History: None Social History: Denies history of smoking, denies recreational drug use. Started drinking since he was 18 years old, averaging 12 through 17 beer per day. Current Medications: Antihypertensive (but patient is not sure) Allergies: No known drug allergies 12/31/2024: Labs reviewed and patient examined at the bedside. Patient's symptomatic hyponatremia likely due to Hypotonic Hypovolemic Hyponatremia likely due to nausea and vomiting caused by alcohol intoxication. Since sodium has been over-corrected from 120 to 132 within 24 hrs, patient needs to take D5W IVF. Denies chest pain, palpation, SOB, abdominal pain, fevers or chills. cc:: cc: Keisha Marmolejo MD Review of Systems Review of Systems Narrative Review of Systems: All 12 systems assessed and the patient denies unless otherwise stated in HPI Exam Vital Signs Temp Pulse Resp BP Pulse Ox O2 Del Method 98.1 F 75 18 119/80 95 Room Air 12/31/24 12:00 12/31/24 12:00 12/31/24 12:00 12/31/24 12:00 12/31/24 12:00 12/31/24 12:00 Narrative Exam General: No acute distress, AAO x3, Weak appearing Eye: PERRL, EOMI, Red conjunctiva, no scleral icterus HENT: Normocephalic, atraumatic, hearing intact to conversation at normal volume, moist oral mucosa Neck: Supple, non-tender, no JVD, no lymphadenopathy Lungs: Non-labored respirations, symmetric chest rise, Clear to auscultate bilaterally, No wheezing, rhonchi, crackles Heart: Peripheral pulses intact bilaterally, Regular Rate and Rhythm. Abdomen: Soft, non-tender, non-distended, no palpable masses Musculoskeletal: Normal range of motion and strength, No cyanosis or edema, No visible joint swelling Skin: Skin is warm, dry, no rashes or lesions. Psychiatric: Cooperative, appropriate mood and affect, Awake and alert, not agitated Neuro: Cranial nerves II-XII grossly intact. Strength 5/5 throughout. Sensations intact to light touch. Results Labs 01/01/25 04:59 01/01/25 13:14 Labs: Short CBC 12/30/24 12/31/24 Range/Units 21:41 05:23 WBC 9.9 10.2 (3.8-10.6) Thou/mm3 Hgb 13.9 13.1 L (13.5-16.0) g/dL Hct 38.2 L 35.2 L (41.0-53.0) % Plt Count 116 L 93 L (140-440) Thou/mm3 BMP 12/30/24 12/31/24 12/31/24 21:41 01:56 03:05 Sodium 120 L 122 L 123 L Potassium 3.4 Chloride 82 L Carbon Dioxide 27.7 BUN 5 L Creatinine 0.8 Glucose 206 H Calcium 8.4 12/31/24 12/31/24 12/31/24 05:23 06:21 07:30 Sodium 128 L 128 L 129 L Potassium 3.0 L Chloride 91 L Carbon Dioxide 27.5 BUN 6 L Creatinine 0.8 Glucose 94 D Calcium 8.1 L 12/31/24 12/31/24 12/31/24 10:40 12:18 14:23 Sodium 129 L 130 L 130 L Potassium 3.1 L Chloride 93 L Carbon Dioxide 26.6 BUN 6 L Creatinine 0.8 Glucose 103 Calcium 7.9 L Liver Function 12/30/24 12/31/24 12/31/24 Range/Units 21:41 05:23 10:40 Total Bilirubin 1.7 H 1.4 H (0.3-1.2) mg/dL AST 115 H 89 H (0-34) U/L ALT 76 H 62 H (10-49) U/L Alkaline Phosphatase 142 H 119 H D (46-116) U/L Albumin 4.1 3.7 3.6 (3.5-5.0) gm/dL Urine 12/31/24 Range/Units 00:11 Urine Color Yellow (Lt Yel-Yel) Urine Clarity Clear (Clear/Hazy) Urine pH 7.0 (5.0-7.0) Ur Specific [place] 1.017 (1.001-1.035) Urine Protein 1+ A (Neg - Trace) Urine Glucose (UA) 4+ A (Negative) Quality Measures Quality Measures VTE prophylaxis Medications Home Medications and Allergies Allergies Allergy/AdvReac Type Severity Reaction Status Date / Time No Known Allergies Allergy Unverified 12/31/24 10:33 Visit Medications Chlordiazepoxide HCl (Chlordiazepoxide Hcl 25 Mg Capsule) 25 mg PO Q8HR [facility] Stop: 01/05/25 05:59 Last Admin: 12/31/24 13:53 Dose: 25 mg Dextrose (Dextrose 50%-Water Inj 50 Ml Syringe) 50 ml IV Q15MIN PRN PRN Reason: BG <50 OR BG <70 & pt unresponsive Stop: 01/30/25 01:38 Diazepam (Diazepam Inj 5 Mg/Ml Vial 2 Ml) 5 mg IVP Q2H PRN PRN Reason: Breakthrough Agitation Folic Acid (Folic Acid 1 Mg Tablet) 1 mg PO QDAY NICOLAS Stop: 02/02/25 08:59 Folic Acid (Folic Acid Inj 1 Mg/0.2 Ml) 1 mg IVP QDAY [facility] Stop: 01/03/25 08:59 Glucagon (Glucagon Inj 1 Mg Vial) 1 mg IM Q15MIN PRN PRN Reason: BG <70, and no IV access Ceftriaxone Sodium/Dextrose (Rocephin/D5w 1gm Iv Premix) 1 gm in 50 mls @ 100 mls/hr IV QDAY [facility] Stop: 01/07/25 08:59 Last Admin: 12/31/24 08:11 Dose: 100 mls/hr Dextrose (D5w) 1,000 mls @ 60 mls/hr IV .[id number] ONE Stop: 01/01/25 03:09 Last Admin: 12/31/24 10:37 Dose: 60 mls/hr Magnesium Sulfate (Magnesium Sulfate Ivpb) 2 gm in 50 mls @ 25 mls/hr IV X1 ONE Stop: 12/31/24 16:36 Insulin Human Lispro (Insulin Lispro (Admelog) 1 Unit/0.01 Ml Unit) 0 unit SC Q6HR [facility]; Protocol Stop: 01/30/25 01:44 Last Admin: 12/31/24 12:16 Dose: Not Given Lorazepam (Lorazepam 0.5 Mg Tablet) 0.5 mg PO Q4HR PRN PRN Reason: CIWA Score 2-6 Stop: 01/05/25 08:30 Lorazepam (Lorazepam 0.5 Mg Tablet) 1 mg PO Q4HR PRN PRN Reason: CIWA SCORE 7-11 Stop: 01/05/25 08:30 Last Admin: 12/31/24 08:49 Dose: 1 mg Lorazepam (Lorazepam 0.5 Mg Tablet) 2 mg PO Q4HR PRN PRN Reason: CIWA SCORE 12-15 Stop: 01/05/25 08:30 Ondansetron HCl (Ondansetron Inj 2 Mg/Ml Inj 2 Ml) 4 mg IVP Q6H PRN; Protocol PRN Reason: NAUSEA OR VOMITING Stop: 01/30/25 01:28 Pantoprazole Sodium (Pantoprazole Inj 40 Mg Vial) 40 mg IVP BID [facility] Stop: 01/30/25 01:29 Last Admin: 12/31/24 08:10 Dose: 40 mg Thiamine HCl (Thiamine Inj 100 Mg/Ml Vial 2 Ml) 100 mg IVP QDAY [facility] Stop: 01/03/25 08:59 Thiamine HCl (Thiamine 100 Mg Tablet) 100 mg PO QDAY [facility] Stop: 02/02/25 08:59 Discontinued Medications Calcium Gluconate (Calcium Gluconate 10% Inj 1 Gm/10 Ml Vial) 1 gm IV X1 ONE Stop: 12/31/24 14:28 Last Admin: 12/31/24 14:38 Dose: Not Given Dextrose (Dextrose 50%-Water Inj 50 Ml Syringe) 25 ml IV Q15MIN PRN PRN Reason: BG 50-70 responsive npo pt Stop: 01/30/25 01:38 Diazepam (Diazepam Inj 5 Mg/Ml Vial 2 Ml) 5 mg IVP Q2HR PRN PRN Reason: CIWA SCORE 14-19 Stop: 01/05/25 01:45 Diazepam (Diazepam Inj 5 Mg/Ml Vial 2 Ml) 2.5 mg IVP Q2H PRN PRN Reason: Breakthrough Agitation Folic Acid (Folic Acid 1 Mg Tablet) 1 mg PO QDAY [facility] Stop: 01/30/25 08:59 Folic Acid (Folic Acid 1 Mg Tablet) 1 mg PO QDAY [facility] Stop: 01/30/25 02:09 Last Admin: 12/31/24 08:11 Dose: Not Given Sodium Chloride (Ns) 1,000 mls @ 65 mls/hr IV .[id number] NICOLAS Stop: 01/30/25 00:32 Last Infusion: 12/31/24 01:55 Dose: Infused Sodium Chloride 50 ml/ IV (Miscellaneous Supplies) 50 mls @ 300 mls/hr IV X1 ONE Stop: 12/31/24 01:38 Last Infusion: 12/31/24 02:42 Dose: Infused Thiamine HCl 500 mg/ Sodium (Chloride) 105 mls @ 205 mls/hr IV X1 ONE Stop: 12/31/24 02:15 Last Infusion: 12/31/24 03:22 Dose: Infused Sodium Chloride 500 ml/ IV (Miscellaneous Supplies) 500 mls @ 40 mls/hr IV X1 ONE Stop: 12/31/24 15:15 Last Infusion: 12/31/24 06:27 Dose: Infused Potassium Phosphate 22.5 mmol/ (Sodium Chloride) 507.5 mls @ 82.778 mls/hr IV X1 ONE Stop: 12/31/24 08:55 Last Admin: 12/31/24 06:29 Dose: Not Given Sodium Chloride (Ns) 1,000 mls @ 75 mls/hr IV .[id number] [facility] Last Admin: 12/31/24 06:33 Dose: 75 mls/hr Potassium Phosphate 22.5 mmol/ (Sodium Chloride) 507.5 mls @ 82.778 mls/hr IV X1 ONE Stop: 12/31/24 13:07 Last Admin: 12/31/24 08:49 Dose: 82.778 mls/hr Potassium Chloride (Kcl Ivpb) 10 meq in 100 mls @ 100 mls/hr IV Q1H [facility] Stop: 12/31/24 12:27 Calcium Gluconate/Sodium Chloride (Calcium Gluc/Ns 1000mg Ivpb) 1,000 mg in 50 mls @ 50 mls/hr IV X1 ONE Stop: 12/31/24 15:29 Calcium Gluconate/Sodium Chloride (Calcium Gluc/Ns 1000mg Ivpb) 1,000 mg in 50 mls @ 50 mls/hr IV X1 ONE Stop: 12/31/24 15:29 Last Admin: 12/31/24 14:38 Dose: Not Given Insulin Human Lispro (Insulin Lispro (Admelog) 1 Unit/0.01 Ml Unit) 0 unit SC Q6H [facility]; Protocol Stop: 01/30/25 01:44 Last Admin: 12/31/24 07:51 Dose: Not Given Lorazepam (Lorazepam 0.5 Mg Tablet) 1 mg PO X1 ONE Stop: 12/31/24 00:35 Last Admin: 12/31/24 00:47 Dose: 1 mg Thiamine HCl (Thiamine Inj 100 Mg/Ml Vial 2 Ml) 100 mg IVP QDAY [facility] Stop: 01/30/25 08:59 Last Admin: 12/31/24 08:10 Dose: 100 mg Assessment & Plan Plan 54-year-old male past medical significant for alcohol use disorder, anxiety, hypertension, presented to the hosptial on 12/31/2024 due to 3 day history of headache associated with nausea and vomiting, and blurry vision. Patient is admitted for management evaluation of symptomatic hyponatremia and alcohol withdrawal. Nephrology has been consulted for management of hyponatremia. #Hypotonic Hypovolemic Hyponatremia #Vomiting/GI losses VS possibly superimposed SIADH - On admission: Na: 120 (<136, hyponatremia), calculated osmolality: 245 (<275, Hypo-osmolar) - Patient looked dehydrated with dry mucous membrane, tachycardia, poor skin turgor. - Urine Osmolality: ~510 (based on Urine specific gravity of 1.017 on admission) which is >100 signifying concentrated urine. With patient's chronic hyponatremic state, this could signify superimposed SIADH. - BUN:5, in lower range (low in SIADH and high in true hypovolemia) - TSH: 1.19. Within normal range. Hypothyrodism ruled out (can mimic SIADH) -Beer Potomania is classically assocated with hyponatremia due to low solute intake; Beer provides water and carbs but very little sodium/protein with low serm osmolality. However, Urine is usually dilute (low urine osmolality <100 mOsm/kg) because kidney is trying to excrete free water. Plan: -Continue 1 L IV D5W 75ml/hr maintenance fluid -Check Uric acid level (low in SIADH and high in hypovolemia) -Goal correction of 6-8 meq in 24 hours, as sodium was over corrected to 9, continue D5W -Continue Fluid restriction to 500 cc or less -Patient has been placed on CIWA protocol -Strict ins and outs -Thiamine 100mg IVP Qday -Folic acid 1 mg daily -Protonix 40 mg IV BID -Zofran 4 mg Q6h prn #Upper versus lower GI bleed #Hematemesis #History of anxiety #History of hypertension -Management per Primary Hospitalist team Thank you for allowing us to participate in the care of your patient. Assessment and plan discussed with my attending physician Dr. Sharon Agudelo (PGY-1)- Internal medicine resident Attending Provider Attestation/Addendum patient currently seen and examined with resident physician Dr. Agudelo. Note reviewed, agree with findings and recommendations. Patient currently seen in telemetry. Sodium kaylin from 123-130. Agree with the D5W. Hyponatremia-combination of nausea vomiting in the setting of beer potomania. Agree with fluid restriction. Did receive 1 bag of 3% hypertonic saline. Will monitor serum sodium closely. No more than 6 mEq rise in serum sodium in 24 hours. Spoke to primary team Thank you Keisha for allowing me to participate in the care of Ms. Gavin
[2024-12-31 15:57] LABS: Hepatitis C Antibody Non Reactive (Non React)
[2024-12-31] MEDS: Magnesium Sulfate 2 GM Ivpb 2 GM/50 ML BAG IV (16:22)
[2024-12-31] MEDS: POTASSIUM CHL 10 mEq IVPB 10 MEQ/100 ML BAG 100 MEQ IV ×2 (16:22→17:27)
[2024-12-31] MEDS: DEXTROSE 5%-WATER 1,000 ML 125 ML IV (16:29)
--- NOTE | 2024-12-31 16:32 | PC.NURSE ---
Per Dr. Dwight elmore to give PO meds at this time.
[2024-12-31 17:03] LABS: Sodium 132 mMol/L (136-145)
[2024-12-31 18:41] LABS: Sodium 129 mMol/L (136-145)
[2024-12-31 20:47] LABS: Sodium 130 mMol/L (136-145)
--- NOTE | 2024-12-31 21:21 | PD.IMCONS ---
HPI Data of Consult Requesting Physician: Keisha Marmolejo MD Primary Care Provider: Physician No Primary/Family Consult Narrative Reason for consult: Nausea vomiting, gross electrolyte abnormalities, hematemesis, abnormal LFT History of present illness: 54 is a male who drinks about on the average 17 beers a day presented to the emergency room with nausea vomiting headache and blurred vision Admitting sodium 129 with a presenting hemoglobin hematocrit 13.9 and 38.2 with a platelet count 116,000 Abdominal ultrasound showed liver size to be 12.7 cm fatty liver and normal gallbladder Patient's sodium has come up to 129 patient was drinking up until he came to the hospital cc:: cc: Keisha Marmolejo MD Review of Systems Review of Systems Systems Reviewed: All systems reviewed, normal except as documented Past Medical History Surgical History OTHER SURGICAL HX: Hypertension Chronic alcohol abuse Meds Home Medications and Allergies Allergies Allergy/AdvReac Type Severity Reaction Status Date / Time No Known Allergies Allergy Unverified 12/31/24 10:33 Exam Vital Signs Temp Pulse Resp BP Pulse Ox O2 Del Method 97.6 F 72 18 121/78 100 Room Air 12/31/24 20:00 12/31/24 20:00 12/31/24 20:00 12/31/24 20:00 12/31/24 20:00 12/31/24 20:00 Constitutional Comments: Chronically ill-appearing Routine Respiratory Exam Comments: Normal to auscultation Routine Abdominal Exam Comments: Soft nontender Results Labs 01/02/25 05:15 01/02/25 05:15 Labs: Short CBC 12/30/24 12/31/24 Range/Units 21:41 05:23 WBC 9.9 10.2 (3.8-10.6) Thou/mm3 Hgb 13.9 13.1 L (13.5-16.0) g/dL Hct 38.2 L 35.2 L (41.0-53.0) % Plt Count 116 L 93 L (140-440) Thou/mm3 BMP 12/30/24 12/31/24 12/31/24 21:41 01:56 03:05 Sodium 120 L 122 L 123 L Potassium 3.4 Chloride 82 L Carbon Dioxide 27.7 BUN 5 L Creatinine 0.8 Glucose 206 H Calcium 8.4 12/31/24 12/31/24 12/31/24 05:23 06:21 07:30 Sodium 128 L 128 L 129 L Potassium 3.0 L Chloride 91 L Carbon Dioxide 27.5 BUN 6 L Creatinine 0.8 Glucose 94 D Calcium 8.1 L 12/31/24 12/31/24 12/31/24 10:40 12:18 14:23 Sodium 129 L 130 L 130 L Potassium 3.1 L Chloride 93 L Carbon Dioxide 26.6 BUN 6 L Creatinine 0.8 Glucose 103 Calcium 7.9 L 12/31/24 12/31/24 12/31/24 15:55 17:55 20:05 Sodium 132 L 129 L 130 L Potassium Chloride Carbon Dioxide BUN Creatinine Glucose Calcium Liver Function 12/30/24 12/31/24 12/31/24 Range/Units 21:41 05:23 10:40 Total Bilirubin 1.7 H 1.4 H (0.3-1.2) mg/dL AST 115 H 89 H (0-34) U/L ALT 76 H 62 H (10-49) U/L Alkaline Phosphatase 142 H 119 H D (46-116) U/L Albumin 4.1 3.7 3.6 (3.5-5.0) gm/dL Urine 12/31/24 Range/Units 00:11 Urine Color Yellow (Lt Yel-Yel) Urine Clarity Clear (Clear/Hazy) Urine pH 7.0 (5.0-7.0) Ur Specific [place] 1.017 (1.001-1.035) Urine Protein 1+ A (Neg - Trace) Urine Glucose (UA) 4+ A (Negative) Assessment and Plan Additional Assessment & Plan Additional Plan: # Nausea vomiting # Hematemesis # transaminitis due to alcohol consumption # Gross electrolyte abnormalities Plan Agree with the current management Clear liquid diet a.m. till 10 AM then n.p.o. Consent obtained for fiberoptic esophagogastroduodenoscopy with possible biopsy possible therapeutic intervention scheduled for tomorrow evening Agree with IV Protonix Counseled the patient on the virtues of complete abstinence from alcohol Will follow the patient Thank you very much for the opportunity to participate in the care of this patient
[2024-12-31 23:05] LABS: Albumin, Serum 3.4 gm/dL (3.5-5.0); Anion Gap 8 (7-16); BUN/Creatinine Ratio 6 Ratio (12-20); Blood Urea Nitrogen 5 mg/dL (9-23); Calcium 7.6 mg/dL (8.3-10.6); Calcium (Corrected) 8.1 mg/dL (8.5-10.1); Carbon Dioxide 26.6 mMol/L (20.0-31.0); Chloride 97 mMol/L (98-107); Creatinine (Component) 0.8 mg/dL (0.6-1.3); Estimated Creatinine Clearance 82.5 mL/min (>60); Glucose 124 mg/dL (74-106); Osmolality,Calculated 262 (275-295); Phosphorous 1.3 mg/dL (2.4-5.1); Potassium 3.5 mMol/L (3.4-5.1); Sodium 132 mMol/L (136-145); eGFR > 60 See Note
[2025-01-01] VITALS (16 sets, daily range): BP systolic 107–134; BP diastolic 63–82; PULSE 64–96; RESP 12–20; TEMP 36–36.9; O2SAT 96–100; BMI 23.8
[2025-01-01] MEDS: DEXTROSE 5%-WATER 500 ML 125 ML IV ×3 (00:04→05:28)
[2025-01-01 00:50] LABS: Sodium 132 mMol/L (136-145)
[2025-01-01 02:16] LABS: Sodium 131 mMol/L (136-145)
[2025-01-01 05:36] LABS: Basophils # (Auto) 0.0 Thou/mm3 (0.0-0.2); Basophils % (Auto) 0 % (0-2.5); Eosinophils # (Auto) 0.1 Thou/mm3 (0.0-0.5); Eosinophils % (Auto) 1 % (0-10); Hematocrit 34.9 % (41.0-53.0); Hemoglobin 12.2 g/dL (13.5-16.0); Immature Granulocytes Auto 0.03 Thou/mm3 (0.00-0.00); Lymphocytes # (Auto) 1.5 Thou/mm3 (1.0-4.8); Lymphocytes % (Auto) 20 % (10-50); Mean Corpuscular HGB Conc 35.0 g/dl (31.0-37.0); Mean Corpuscular Hemoglobin 29.5 pg (25.0-35.0); Mean Corpuscular Volume 84 fL (80-100); Monocytes # (Auto) 0.7 Thou/mm3 (0.0-0.8); Monocytes % (Auto) 10 % (0-12); Neutrophils # (Auto) 5.1 Thou/mm3 (1.8-7.7); Neutrophils % (Auto) 69 % (37-80); Nucleated Red Blood Cell # 0.00 Thou/mm3 (0.00-0.00); Nucleated Red Blood Cell % 0 /100 WBC (0); Platelet Count 107 Thou/mm3 (140-440); RDW Standard Deviation 38.1 fL (35.1-43.9); Red Blood Count 4.14 Miln/mm3 (4.50-5.90); White Blood Count 7.4 Thou/mm3 (3.8-10.6)
[2025-01-01 06:00] LABS: INR 1.0 (0.9-1.3); Partial Thromboplastin Time 26.5 Seconds (22.0-36.0); Prothrombin Time 11.1 Seconds (9.0-12.2)
[2025-01-01 06:09] LABS: Albumin, Serum 3.4 gm/dL (3.5-5.0); Anion Gap 9 (7-16); BUN/Creatinine Ratio 8 Ratio (12-20); Blood Urea Nitrogen 6 mg/dL (9-23); Calcium 8.0 mg/dL (8.3-10.6); Calcium (Corrected) 8.5 mg/dL (8.5-10.1); Carbon Dioxide 26.3 mMol/L (20.0-31.0); Chloride 95 mMol/L (98-107); Creatinine (Component) 0.8 mg/dL (0.6-1.3); Estimated Creatinine Clearance 82.5 mL/min (>60); Glucose 104 mg/dL (74-106); Magnesium 2.2 mg/dL (1.6-2.6); Osmolality,Calculated 258 (275-295); Phosphorous 1.5 mg/dL (2.4-5.1); Potassium 3.5 mMol/L (3.4-5.1); Sodium 130 mMol/L (136-145); eGFR > 60 See Note
[2025-01-01] MEDS: FOLIC ACID INJ 1 MG/0.2 ML IVP (08:42)
[2025-01-01] MEDS: NAPH,KPH MBDB 1 PACKET (1.5 GM) 2 PACKET PO (08:43)
[2025-01-01] MEDS: POTASSIUM CHLORIDE 10% 20 MEQ/15 ML UDC 40 MEQ PO (08:43)
[2025-01-01] MEDS: cefTRIAXone/D5w 1gm IV premix 1 GM/50 ML BAG IV (08:44)
[2025-01-01] MEDS: THIAMINE INJ 100 MG/ML VIAL 2 ML IVP (08:44)
--- NOTE | 2025-01-01 09:14 | ESPR_ITS ---
Documentation for date of: 01/01/25 Subjective Subjective Interval history: 54-year-old male past medical significant for alcohol use disorder, anxiety, hypertension, presented to the hosptial on 12/31/2024 due to 3 day history of headache associated with nausea and vomiting, and blurry vision. He describes progressive generalized weakness, to the extent that he required asisstance to stand. During this illness, he experienced 3 ground level falls; denies any loss of consciousness and reports no focal neurologic deficits. He admits to heavy alcohol consumption (approximtely 17 bers daily) and states his last alcoholic drink was yesterday at 4pm. The patient confirms the presence of blood in his vomitus and endorses visual and auditory hallucinations. Denies chest pain, palpation, SOB, abdominal pain, fevers or chills. Patient is admitted for management evaluation of symptomatic hyponatremia and alcohol withdrawal. Nephrology has been consulted for management of hyponatremia. ED Course: -Initial vitals were BP 139/92, pulse 84, RR 20, temp 98.8, O2 sat 97% on room air. -Labs significant for sodium 120, osmolality 245,chloride 82, glucose 206, bili 1.7, AST 115, ALT 76 -Imaging included a CT head negative for acute hemorrhage. EKG showed sinus rhythm -In the ED, patient was given 0.5 L of NS and ativan 1 mg x 1 Past Medical History: Hypertension, anxiety Family History: Not contributory Surgical History: None Social History: Denies history of smoking, denies recreational drug use. Started drinking since he was 18 years old, averaging 12 through 17 beer per day. Current Medications: Antihypertensive (but patient is not sure) Allergies: No known drug allergies 12/31/2024: Labs reviewed and patient examined at the bedside. Patient's symptomatic hyponatremia likely due to Hypotonic Hypovolemic Hyponatremia likely due to nausea and vomiting caused by alcohol intoxication. Since sodium has been over-corrected from 120 to 132 within 24 hrs, patient needs to take D5W IVF. Denies chest pain, palpation, SOB, abdominal pain, fevers or chills. 01/01/2025: Labs reviewed and patient examined at the bedside. Currently Sodium level 130. Patient lies comfortable in bed. No new symptoms, No tremors or asterixis. Patient currently stable. Exam Vital Signs Temp Pulse Resp BP Pulse Ox O2 Del Method 97.9 F 64 13 107/75 99 Room Air 01/01/25 08:00 01/01/25 08:00 01/01/25 08:00 01/01/25 08:00 01/01/25 08:00 01/01/25 08:00 Narrative Exam General: No acute distress, AAO x3, Weak appearing Eye: PERRL, EOMI, Red conjunctiva, no scleral icterus HENT: Normocephalic, atraumatic, hearing intact to conversation at normal volume, moist oral mucosa Neck: Supple, non-tender, no JVD, no lymphadenopathy Lungs: Non-labored respirations, symmetric chest rise, Clear to auscultate bilaterally, No wheezing, rhonchi, crackles Heart: Peripheral pulses intact bilaterally, Regular Rate and Rhythm. Abdomen: Soft, non-tender, non-distended, no palpable masses Musculoskeletal: Normal range of motion and strength, No cyanosis or edema, No visible joint swelling Skin: Skin is warm, dry, no rashes or lesions. Psychiatric: Cooperative, appropriate mood and affect, Awake and alert, not agitated Neuro: Cranial nerves II-XII grossly intact. Strength 5/5 throughout. Sensations intact to light touch. Objective Labs 01/01/25 04:59 01/01/25 13:14 Labs: Laboratory Results - last 24 hr 12/31/24 12/31/24 12/31/24 05:23 10:40 12:18 WBC RBC Hgb Hct MCV MCH MCHC RDW Std Deviation Plt Count Neut % (Auto) Lymph % (Auto) Phillips % (Auto) Eos % (Auto) Baso % (Auto) Neut # (Auto) Lymph # (Auto) Phillips # (Auto) Eos # (Auto) Baso # (Auto) Immature Gran # (Auto) Absolute Nucleated RBC Immature Gran % Nucleated RBC % PT INR APTT Sodium 129 L 130 L Potassium 3.1 L Chloride 93 L Carbon Dioxide 26.6 Anion Gap 9 BUN 6 L Creatinine 0.8 Estim Creat Clear Calc 82.5 eGFR > 60 BUN/Creatinine Ratio 8 L Glucose 103 Calculated Osmolality 256 L Calcium 7.9 L Corrected Calcium 8.2 L Phosphorus 3.3 Magnesium Albumin 3.6 Hepatitis C Antibody Non Reactive 12/31/24 12/31/24 12/31/24 14:23 15:55 17:55 WBC RBC Hgb Hct MCV MCH MCHC RDW Std Deviation Plt Count Neut % (Auto) Lymph % (Auto) Phillips % (Auto) Eos % (Auto) Baso % (Auto) Neut # (Auto) Lymph # (Auto) Phillips # (Auto) Eos # (Auto) Baso # (Auto) Immature Gran # (Auto) Absolute Nucleated RBC Immature Gran % Nucleated RBC % PT INR APTT Sodium 130 L 132 L 129 L Potassium Chloride Carbon Dioxide Anion Gap BUN Creatinine Estim Creat Clear Calc eGFR BUN/Creatinine Ratio Glucose Calculated Osmolality Calcium Corrected Calcium Phosphorus Magnesium Albumin Hepatitis C Antibody 12/31/24 12/31/24 01/01/25 20:05 22:34 00:27 WBC RBC Hgb Hct MCV MCH MCHC RDW Std Deviation Plt Count Neut % (Auto) Lymph % (Auto) Phillips % (Auto) Eos % (Auto) Baso % (Auto) Neut # (Auto) Lymph # (Auto) Phillips # (Auto) Eos # (Auto) Baso # (Auto) Immature Gran # (Auto) Absolute Nucleated RBC Immature Gran % Nucleated RBC % PT INR APTT Sodium 130 L 132 L 132 L Potassium 3.5 Chloride 97 L Carbon Dioxide 26.6 Anion Gap 8 BUN 5 L Creatinine 0.8 Estim Creat Clear Calc 82.5 eGFR > 60 BUN/Creatinine Ratio 6 L Glucose 124 H Calculated Osmolality 262 L Calcium 7.6 L Corrected Calcium 8.1 L Phosphorus 1.3 L Magnesium Albumin 3.4 L Hepatitis C Antibody 01/01/25 01/01/25 01:59 04:59 WBC 7.4 RBC 4.14 L Hgb 12.2 L Hct 34.9 L MCV 84 MCH 29.5 MCHC 35.0 RDW Std Deviation 38.1 Plt Count 107 L Neut % (Auto) 69 Lymph % (Auto) 20 Phillips % (Auto) 10 Eos % (Auto) 1 Baso % (Auto) 0 Neut # (Auto) 5.1 Lymph # (Auto) 1.5 Phillips # (Auto) 0.7 Eos # (Auto) 0.1 Baso # (Auto) 0.0 Immature Gran # (Auto) 0.03 H Absolute Nucleated RBC 0.00 Immature Gran % 0 Nucleated RBC % 0 PT 11.1 INR 1.0 APTT 26.5 Sodium 131 L 130 L Potassium 3.5 Chloride 95 L Carbon Dioxide 26.3 Anion Gap 9 BUN 6 L Creatinine 0.8 Estim Creat Clear Calc 82.5 eGFR > 60 BUN/Creatinine Ratio 8 L Glucose 104 Calculated Osmolality 258 L Calcium 8.0 L Corrected Calcium 8.5 Phosphorus 1.5 L Magnesium 2.2 Albumin 3.4 L Hepatitis C Antibody Quality Measures Quality Measures VTE prophylaxis Assessment & Plan Assessment Current Active Medications: Generic Name Dose Route Start Last Admin Trade Name Freq PRN Reason Stop Dose Admin Acetaminophen 500 mg 12/31/24 15:36 Acetaminophen 500 Mg Tablet PO 01/30/25 15:35 Q6HR PRN fever >99 or pain 1-4 Chlordiazepoxide HCl 25 mg 01/01/25 21:00 Chlordiazepoxide Hcl 25 Mg Capsule PO 01/06/25 20:59 BID NICOLAS Dextrose 50 ml 12/31/24 01:39 Dextrose 50%-Water Inj 50 Ml Syringe IV 01/30/25 01:38 Q15MIN PRN BG <50 OR BG <70 & pt unresponsive Diazepam 5 mg 12/31/24 03:06 Diazepam Inj 5 Mg/Ml Vial 2 Ml IVP Q2H PRN Breakthrough Agitation Folic Acid 1 mg 01/03/25 09:00 Folic Acid 1 Mg Tablet PO 02/02/25 08:59 QDAY NICOLAS Folic Acid 1 mg 01/01/25 09:00 01/01/25 08:42 Folic Acid Inj 1 Mg/0.2 Ml IVP 01/03/25 08:59 1 mg QDAY NICOLAS Administration Glucagon 1 mg 12/31/24 01:39 Glucagon Inj 1 Mg Vial IM Q15MIN PRN BG <70, and no IV access Ceftriaxone Sodium/Dextrose 1 gm in 50 mls @ 100 mls/hr 12/31/24 09:00 01/01/25 08:44 Rocephin/D5w 1gm Iv Premix IV 01/07/25 08:59 100 mls/hr QDAY NICOLAS Administration Dextrose 500 mls @ 125 mls/hr 01/01/25 00:16 01/01/25 05:28 D5w IV 01/31/25 00:14 125 mls/hr On Hold: 01/01/25 07:47 .Q4H NICOLAS Administration Lorazepam 0.5 mg 12/31/24 08:31 01/01/25 05:27 Lorazepam 0.5 Mg Tablet PO 01/05/25 08:30 0.5 mg Q4HR PRN Administration CIWA Score 2-6 Lorazepam 1 mg 12/31/24 08:31 12/31/24 16:21 Lorazepam 0.5 Mg Tablet PO 01/05/25 08:30 1 mg Q4HR PRN Administration CIWA SCORE 7-11 Lorazepam 2 mg 12/31/24 08:31 Lorazepam 0.5 Mg Tablet PO 01/05/25 08:30 Q4HR PRN CIWA SCORE 12-15 Ondansetron HCl 4 mg 12/31/24 01:29 Ondansetron Inj 2 Mg/Ml Inj 2 Ml IVP 01/30/25 01:28 Q6H PRN NAUSEA OR VOMITING Protocol Pantoprazole Sodium 40 mg 12/31/24 01:30 01/01/25 08:43 Pantoprazole Inj 40 Mg Vial IVP 01/30/25 01:29 40 mg BID NICOLAS Administration Thiamine HCl 100 mg 01/01/25 09:00 01/01/25 08:44 Thiamine Inj 100 Mg/Ml Vial 2 Ml IVP 01/03/25 08:59 100 mg QDAY NICOLAS Administration Thiamine HCl 100 mg 01/03/25 09:00 Thiamine 100 Mg Tablet PO 02/02/25 08:59 QDAY NICOLAS Plan 54-year-old male past medical significant for alcohol use disorder, anxiety, hypertension, presented to the hosptial on 12/31/2024 due to 3 day history of headache associated with nausea and vomiting, and blurry vision. Patient is admitted for management evaluation of symptomatic hyponatremia and alcohol withdrawal. Nephrology has been consulted for management of hyponatremia. #Hypotonic Hypovolemic Hyponatremia #Vomiting/GI losses VS possibly superimposed SIADH - On admission: Na: 120 (<136, hyponatremia), calculated osmolality: 245 (<275, Hypo-osmolar) - Patient looked dehydrated with dry mucous membrane, tachycardia, poor skin turgor. - Urine Osmolality: ~510 (based on Urine specific gravity of 1.017 on admission) which is >100 signifying concentrated urine. With patient's chronic hyponatremic state, this could signify superimposed SIADH. - BUN:5, in lower range (low in SIADH and high in true hypovolemia) - TSH: 1.19. Within normal range. Hypothyrodism ruled out (can mimic SIADH) -Beer Potomania is classically assocated with hyponatremia due to low solute intake; Beer provides water and carbs but very little sodium/protein with low serm osmolality. However, Urine is usually dilute (low urine osmolality <100 mOsm/kg) because kidney is trying to excrete free water. Plan: -CTM eletrolyte levels. -Check Uric acid level (low in SIADH and high in hypovolemia) -Goal correction of 6-8 meq in 24 hours, as sodium was over corrected to 9, continue D5W -Continue Fluid restriction -Patient has been placed on CIWA protocol -Strict ins and outs -Thiamine 100mg IVP Qday -Folic acid 1 mg daily -Protonix 40 mg IV BID -Zofran 4 mg Q6h prn #Upper versus lower GI bleed #Hematemesis #History of anxiety #History of hypertension -Management per Primary Hospitalist team Thank you for allowing us to participate in the care of your patient. Assessment and plan discussed with my attending physician Dr. Sharon Agudelo (PGY-1)- Internal medicine resident Attending Provider Attestation/Addendum patient currently seen and examined with resident physician Dr. Agudelo. Note reviewed, agree with findings and recommendations. Patient currently seen in telemetry. Sodium kaylin from 123-130. Agree with the D5W. Hyponatremia-combination of nausea vomiting in the setting of beer potomania. Agree with fluid restriction. Did receive 1 bag of 3% hypertonic saline. Will monitor serum sodium closely. No more than 6 mEq rise in serum sodium in 24 hours. Spoke to primary team 01/01/2025 patient more alert and awake. Sodium 130. DC D5W. Noted patient will be going for endoscopy. Thank you Keisha for allowing me to participate in the care of Ms. Gavin
[2025-01-01 09:47] LABS: Sodium 132 mMol/L (136-145)
--- NOTE | 2025-01-01 10:30 | PC.SS ---
Update: Patient under CIWA protocal. EGD is pending.
--- NOTE | 2025-01-01 12:57 | PD.RESPRO ---
Documentation for date of: 01/01/25 Subjective Subjective Interval history: No acute overnight events. Seen and examined at bedside and patient resting comfortably in bed. Personal CIWA score of 1, thus chlordiazepoxide switch from TID to BID and will continue to wean down so long as CIWA scores remain low. Additionally, nephrology states that patient no longer requires IVF and will allow Na to correct on its own and in agreement with plan. Otherwise, patient continues to pend EGD for evaluation of GI bleed. Exam Vital Signs Temp Pulse Resp BP Pulse Ox O2 Del Method 97.9 F 76 16 122/81 98 Room Air 01/01/25 12:00 01/01/25 12:00 01/01/25 12:00 01/01/25 12:00 01/01/25 12:00 01/01/25 12:00 Narrative Exam General: Alert, no acute distress.Conversational, toxic appearing, flushed Skin: Warm, dry, intact. No rash or ecchymoses. Head: Normocephalic, atraumatic. Eye: Injected conjunctiva, negative for papilledema on funduscopy exam PERRL. Throat: Dry mucosa moist. No obvious lesions in oropharynx. Cardiovascular: Regular rate and rhythm, no murmur, +S1/S2. Respiratory: Lungs are clear to auscultation, respirations unlabored, no crackles, no wheezing. Gastrointestinal: Soft, nontender, non-distended. No guarding or rebound tenderness. Extremities: No edema, no cyanosis, no clubbing. Neuro: Alert and oriented x3.No focal deficits observed. Conversant, moving all extremities. No overt cerebellar signs/incoordination. Psychiatric: Cooperative, appropriate affect Objective Labs 01/01/25 04:59 01/01/25 13:14 Labs: Laboratory Results - last 24 hr 12/31/24 12/31/24 12/31/24 05:23 14:23 15:55 WBC RBC Hgb Hct MCV MCH MCHC RDW Std Deviation Plt Count Neut % (Auto) Lymph % (Auto) [place] % (Auto) Eos % (Auto) Baso % (Auto) Neut # (Auto) Lymph # (Auto) [place] # (Auto) Eos # (Auto) Baso # (Auto) Immature Gran # (Auto) Absolute Nucleated RBC Immature Gran % Nucleated RBC % PT INR APTT Sodium 130 L 132 L Potassium Chloride Carbon Dioxide Anion Gap BUN Creatinine Estim Creat Clear Calc eGFR BUN/Creatinine Ratio Glucose Calculated Osmolality Calcium Corrected Calcium Phosphorus Magnesium Albumin Hepatitis C Antibody Non Reactive 12/31/24 12/31/24 12/31/24 17:55 20:05 22:34 WBC RBC Hgb Hct MCV MCH MCHC RDW Std Deviation Plt Count Neut % (Auto) Lymph % (Auto) [place] % (Auto) Eos % (Auto) Baso % (Auto) Neut # (Auto) Lymph # (Auto) [place] # (Auto) Eos # (Auto) Baso # (Auto) Immature Gran # (Auto) Absolute Nucleated RBC Immature Gran % Nucleated RBC % PT INR APTT Sodium 129 L 130 L 132 L Potassium 3.5 Chloride 97 L Carbon Dioxide 26.6 Anion Gap 8 BUN 5 L Creatinine 0.8 Estim Creat Clear Calc 82.5 eGFR > 60 BUN/Creatinine Ratio 6 L Glucose 124 H Calculated Osmolality 262 L Calcium 7.6 L Corrected Calcium 8.1 L Phosphorus 1.3 L Magnesium Albumin 3.4 L Hepatitis C Antibody 01/01/25 01/01/25 01/01/25 00:27 01:59 04:59 WBC 7.4 RBC 4.14 L Hgb 12.2 L Hct 34.9 L MCV 84 MCH 29.5 MCHC 35.0 RDW Std Deviation 38.1 Plt Count 107 L Neut % (Auto) 69 Lymph % (Auto) 20 [place] % (Auto) 10 Eos % (Auto) 1 Baso % (Auto) 0 Neut # (Auto) 5.1 Lymph # (Auto) 1.5 [place] # (Auto) 0.7 Eos # (Auto) 0.1 Baso # (Auto) 0.0 Immature Gran # (Auto) 0.03 H Absolute Nucleated RBC 0.00 Immature Gran % 0 Nucleated RBC % 0 PT 11.1 INR 1.0 APTT 26.5 Sodium 132 L 131 L 130 L Potassium 3.5 Chloride 95 L Carbon Dioxide 26.3 Anion Gap 9 BUN 6 L Creatinine 0.8 Estim Creat Clear Calc 82.5 eGFR > 60 BUN/Creatinine Ratio 8 L Glucose 104 Calculated Osmolality 258 L Calcium 8.0 L Corrected Calcium 8.5 Phosphorus 1.5 L Magnesium 2.2 Albumin 3.4 L Hepatitis C Antibody 01/01/25 09:20 WBC RBC Hgb Hct MCV MCH MCHC RDW Std Deviation Plt Count Neut % (Auto) Lymph % (Auto) [place] % (Auto) Eos % (Auto) Baso % (Auto) Neut # (Auto) Lymph # (Auto) [place] # (Auto) Eos # (Auto) Baso # (Auto) Immature Gran # (Auto) Absolute Nucleated RBC Immature Gran % Nucleated RBC % PT INR APTT Sodium 132 L Potassium Chloride Carbon Dioxide Anion Gap BUN Creatinine Estim Creat Clear Calc eGFR BUN/Creatinine Ratio Glucose Calculated Osmolality Calcium Corrected Calcium Phosphorus Magnesium Albumin Hepatitis C Antibody Quality Measures Quality Measures VTE prophylaxis Assessment & Plan Assessment Current Active Medications: Generic Name Dose Route Start Last Admin Trade Name Freq PRN Reason Stop Dose Admin Acetaminophen 500 mg 12/31/24 15:36 Acetaminophen 500 Mg Tablet PO 01/30/25 15:35 Q6HR PRN fever >99 or pain 1-4 Chlordiazepoxide HCl 25 mg 01/01/25 21:00 Chlordiazepoxide Hcl 25 Mg Capsule PO 01/06/25 20:59 BID NICOLAS Dextrose 50 ml 12/31/24 01:39 Dextrose 50%-Water Inj 50 Ml Syringe IV 01/30/25 01:38 Q15MIN PRN BG <50 OR BG <70 & pt unresponsive Diazepam 5 mg 12/31/24 03:06 Diazepam Inj 5 Mg/Ml Vial 2 Ml IVP Q2H PRN Breakthrough Agitation Folic Acid 1 mg 01/03/25 09:00 Folic Acid 1 Mg Tablet PO 02/02/25 08:59 QDAY NICOLAS Folic Acid 1 mg 01/01/25 09:00 01/01/25 08:42 Folic Acid Inj 1 Mg/0.2 Ml IVP 01/03/25 08:59 1 mg QDAY NICOLAS Administration Glucagon 1 mg 12/31/24 01:39 Glucagon Inj 1 Mg Vial IM Q15MIN PRN BG <70, and no IV access Ceftriaxone Sodium/Dextrose 1 gm in 50 mls @ 100 mls/hr 12/31/24 09:00 01/01/25 08:44 Rocephin/D5w 1gm Iv Premix IV 01/07/25 08:59 100 mls/hr QDAY NICOLAS Administration Dextrose 500 mls @ 125 mls/hr 01/01/25 00:16 01/01/25 05:28 D5w IV 01/31/25 00:14 125 mls/hr On Hold: 01/01/25 07:47 .Q4H NICOLAS Administration Lorazepam 0.5 mg 12/31/24 08:31 01/01/25 05:27 Lorazepam 0.5 Mg Tablet PO 01/05/25 08:30 0.5 mg Q4HR PRN Administration CIWA Score 2-6 Lorazepam 1 mg 12/31/24 08:31 12/31/24 16:21 Lorazepam 0.5 Mg Tablet PO 01/05/25 08:30 1 mg Q4HR PRN Administration CIWA SCORE 7-11 Lorazepam 2 mg 12/31/24 08:31 Lorazepam 0.5 Mg Tablet PO 01/05/25 08:30 Q4HR PRN CIWA SCORE 12-15 Ondansetron HCl 4 mg 12/31/24 01:29 Ondansetron Inj 2 Mg/Ml Inj 2 Ml IVP 01/30/25 01:28 Q6H PRN NAUSEA OR VOMITING Protocol Pantoprazole Sodium 40 mg 12/31/24 01:30 01/01/25 08:43 Pantoprazole Inj 40 Mg Vial IVP 01/30/25 01:29 40 mg BID NICOLAS Administration Thiamine HCl 100 mg 01/01/25 09:00 01/01/25 08:44 Thiamine Inj 100 Mg/Ml Vial 2 Ml IVP 01/03/25 08:59 100 mg QDAY NICOLAS Administration Thiamine HCl 100 mg 01/03/25 09:00 Thiamine 100 Mg Tablet PO 02/02/25 08:59 QDAY NICOLAS Plan Sukumar Pires is a 54-year-old male with a history of alcohol use disorder, anxiety, and hypertension who is admitted for management of symptomatic hyponatremia, alcohol withdrawal, and upper GI bleed. #Symptomatic hyponatremia, improving #Beer potomania #Alcohol use disorder, chronic #Transaminits Has chronic history of alcohol use disorder, drinks average 12-17 beers per day. Initial sodium of 120, osmolality 245 and likely secondary to beer potomania given history of heavy beer consumption. Initially overcorrected but now within range and no longer requiring IVF or frequent Na checks. - No longer requiring IVF or frequent Na checks - Strict ins and outs - Nephrology consulted, appreciate recs - Thiamine 100 mg and folic acid 1 mg daily - CIWA protocol - Chlordiazepoxide 25 mg BID #Upper versus lower GI bleed #Hematemesis DDX: esophageal varices vs Melina-Kruger tear Concern for possible esophageal varice given hematemesis in the setting of chronic alcohol use. Vitals show hemodynamic stability and hemoglobin stable as well. Hepatitis panel non-reactive. - GI consulted, appreciate recs - Pending EGD - Protonix 40 mg IV BID - Zofran 4 mg prn - Diet n.p.o. - Monitor H&H and transfuse if hemoglobin < 7 #History of anxiety #History of hypertension Chronic condition, patient is on no medication for anxiety. Does not recalled anti-hypertensive meds. - Continue to monitor vitals #Hypophosphatemia #Hypocalcemia, resolved - Follow-up AM labs and replete as needed Hospital management: Disposition: tele symptomatic management and alcohol use disorder evaluation and management, pending EGD Lines: peripheral IV Diet: clear liquid breakfast 01/01 then NPO GI prophylaxis: pantoprazole DVT prophylaxis: SCDs CODE STATUS: Full code ----- Plan discussed with attending physician Dr. Jaleel Quintanilla MD PGY-2 Internal Medicine Attending Provider Attestation/Addendum I attest that I was physically present for the evaluation, physical examination, lab and imaging review of the patient with the residents. I discussed the case with the residents and agree with the findings and plans of care as documented above. Keisha Marmolejo MD
[2025-01-01 14:10] LABS: Sodium 131 mMol/L (136-145)
--- NOTE | 2025-01-01 18:42 | SUR.PHASEI ---
Addendum entered by Madisyn Solano RN 01/01/25 19:02: report received from Natalya Sorto RN Original Note: [id number] patient arrived to recovery resting comfortably in gurney, sleeping and able to arouse with verbal prompting then drifts back to sleep, breathing unlabored, vital signs stable, denies pain and nausea
--- NOTE | 2025-01-01 19:13 | SUR.PHASEI ---
190 Report given to Vipul VALIENTE, patient meet discharge criteria from recovery, awake and sitting up in [facility] eating ice chips; tolerating well denies nausea, breathing unlabored, vital signs stable, denies pain 1912 Patient transported via [facility] to room 266 without incident, patients brother awaiting in room, Vipul VALIENTE promptly in patients room, patient able to ambulate from [facility] to be with stand by assist, patient sitting up in bed with call light in reach when this policy writer typist left patients room
--- NOTE | 2025-01-01 19:30 | PC.NURSE ---
Pt returned from EGD procedure at 1913 by Madisyn VALIENTE, pt resting in bed comfortably, bed in lowest / locked position with call light in place and bed alarm on, pt instructed to call for assistance as needed, pt family at bedside
[2025-01-01] MEDS: OCTREOTIDE ACET INJ 1,000 MCG in SODIUM CHLORIDE 0.9% 100 ML 5.1 MCG IV (21:36)
[2025-01-01] MEDS: MG HYD/AL HYD/SIME (Maalox Reg) SUSP 30 ML UDC 15 ML PO ×2 (21:38→21:40)
[2025-01-01] MEDS: SUCRALFATE SUSP 1 GM/10 ML UDC PO (21:39)
[2025-01-01] MEDS: OCTREOTIDE ACET INJ 50 mCg/ML VIAL IV (22:04)
[2025-01-02] VITALS: BP 119/77; PULSE 81; PULSE 84; RESP 18; TEMP 36.4; O2SAT 97
[2025-01-02] MEDS: MG HYD/AL HYD/SIME (Maalox Reg) SUSP 30 ML UDC 15 ML PO ×6 (01:04→21:26)
[2025-01-02 04:00] VITALS: BP 141/75; PULSE 71; PULSE 72; RESP 14; TEMP 36.6; O2SAT 97
[2025-01-02 05:33] LABS: Basophils # (Auto) 0.0 Thou/mm3 (0.0-0.2); Basophils % (Auto) 1 % (0-2.5); Eosinophils # (Auto) 0.1 Thou/mm3 (0.0-0.5); Eosinophils % (Auto) 1 % (0-10); Hematocrit 35.5 % (41.0-53.0); Hemoglobin 12.3 g/dL (13.5-16.0); Immature Granulocytes Auto 0.03 Thou/mm3 (0.00-0.00); Lymphocytes # (Auto) 1.5 Thou/mm3 (1.0-4.8); Lymphocytes % (Auto) 21 % (10-50); Mean Corpuscular HGB Conc 34.6 g/dl (31.0-37.0); Mean Corpuscular Hemoglobin 29.9 pg (25.0-35.0); Mean Corpuscular Volume 86 fL (80-100); Monocytes # (Auto) 0.9 Thou/mm3 (0.0-0.8); Monocytes % (Auto) 12 % (0-12); Neutrophils # (Auto) 4.8 Thou/mm3 (1.8-7.7); Neutrophils % (Auto) 66 % (37-80); Nucleated Red Blood Cell # 0.00 Thou/mm3 (0.00-0.00); Nucleated Red Blood Cell % 0 /100 WBC (0); Platelet Count 114 Thou/mm3 (140-440); RDW Standard Deviation 40.0 fL (35.1-43.9); Red Blood Count 4.11 Miln/mm3 (4.50-5.90); White Blood Count 7.3 Thou/mm3 (3.8-10.6)
[2025-01-02] MEDS: SUCRALFATE SUSP 1 GM/10 ML UDC PO ×4 (05:48→20:28)
[2025-01-02 06:15] LABS: Alanine Aminotransferase 41 U/L (10-49); Albumin, Serum 3.4 gm/dL (3.5-5.0); Albumin/Globulin Ratio 1.7 (1.2-2.2); Alkaline Phosphatase 92 U/L (46-116); Anion Gap 8 (7-16); Aspartate Amino Transferase 38 U/L (0-34); BUN/Creatinine Ratio 7 Ratio (12-20); Bilirubin,Total 0.7 mg/dL (0.3-1.2); Blood Urea Nitrogen 6 mg/dL (9-23); Calcium 7.7 mg/dL (8.3-10.6); Calcium (Corrected) 8.2 mg/dL (8.5-10.1); Carbon Dioxide 26.8 mMol/L (20.0-31.0); Chloride 97 mMol/L (98-107); Creatinine (Component) 0.9 mg/dL (0.6-1.3); Estimated Creatinine Clearance 73.3 mL/min (>60); Globulin 2.0 gm/dL (2.3-3.5); Glucose 91 mg/dL (74-106); Magnesium 1.9 mg/dL (1.6-2.6); Osmolality,Calculated 262 (275-295); Potassium 4.2 mMol/L (3.4-5.1); Sodium 132 mMol/L (136-145); Total Protein 5.4 gm/dL (5.7-8.2); eGFR > 60 See Note
[2025-01-02 08:00] VITALS: BP 125/82; PULSE 68; PULSE 71; RESP 18; TEMP 36.5; O2SAT 99
[2025-01-02 08:17] VITALS: BMI 23.9
[2025-01-02] MEDS: cefTRIAXone/D5w 1gm IV premix 1 GM/50 ML BAG IV (09:58)
[2025-01-02] MEDS: CALCIUM GLUC/NS 1000MG IVPB 1,000 MG/50 ML BAG 50 MG IV (09:58)
--- NOTE | 2025-01-02 10:40 | PD.RESPRO ---
Documentation for date of: 01/02/25 Subjective Subjective Interval history: 54-year-old male past medical significant for alcohol use disorder, anxiety, hypertension, presented to the hosptial on 12/31/2024 due to 3 day history of headache associated with nausea and vomiting, and blurry vision. He describes progressive generalized weakness, to the extent that he required asisstance to stand. During this illness, he experienced 3 ground level falls; denies any loss of consciousness and reports no focal neurologic deficits. He admits to heavy alcohol consumption (approximtely 17 bers daily) and states his last alcoholic drink was yesterday at 4pm. The patient confirms the presence of blood in his vomitus and endorses visual and auditory hallucinations. Denies chest pain, palpation, SOB, abdominal pain, fevers or chills. Patient is admitted for management evaluation of symptomatic hyponatremia and alcohol withdrawal. Nephrology has been consulted for management of hyponatremia. ED Course: -Initial vitals were BP 139/92, pulse 84, RR 20, temp 98.8, O2 sat 97% on room air. -Labs significant for sodium 120, osmolality 245,chloride 82, glucose 206, bili 1.7, AST 115, ALT 76 -Imaging included a CT head negative for acute hemorrhage. EKG showed sinus rhythm -In the ED, patient was given 0.5 L of NS and ativan 1 mg x 1 Past Medical History: Hypertension, anxiety Family History: Not contributory Surgical History: None Social History: Denies history of smoking, denies recreational drug use. Started drinking since he was 18 years old, averaging 12 through 17 beer per day. Current Medications: Antihypertensive (but patient is not sure) Allergies: No known drug allergies 12/31/2024: Labs reviewed and patient examined at the bedside. Patient's symptomatic hyponatremia likely due to Hypotonic Hypovolemic Hyponatremia likely due to nausea and vomiting caused by alcohol intoxication. Since sodium has been over-corrected from 120 to 132 within 24 hrs, patient needs to take D5W IVF. Denies chest pain, palpation, SOB, abdominal pain, fevers or chills. 01/01/2025: Labs reviewed and patient examined at the bedside. Currently Sodium level 130. Patient lies comfortable in bed. No new symptoms, No tremors or asterixis. Patient currently stable. 01/02/2025: Labs reviewed and patient examined at the bedside. EGD yesterday showed Melina Kruger tear at GE junction and esophageal ulcer. Rneal banda currently stable. Na:132, BUN:6, Cr:0.9, eGFR>60. Hyponatremia is resolving. Patient is free to discharge in nephrology standpoint. Alcohol cessation is required. Exam Vital Signs Temp Pulse Resp BP Pulse Ox O2 Del Method O2 Flow Rate 97.7 F 68 18 125/82 99 Room Air 3 01/02/25 08:00 01/02/25 08:00 01/02/25 08:00 01/02/25 08:00 01/02/25 08:00 01/02/25 04:00 01/01/25 18:35 Narrative Exam General: No acute distress, AAO x3, Weak appearing Eye: PERRL, EOMI, Red conjunctiva, no scleral icterus HENT: Normocephalic, atraumatic, hearing intact to conversation at normal volume, moist oral mucosa Neck: Supple, non-tender, no JVD, no lymphadenopathy Lungs: Non-labored respirations, symmetric chest rise, Clear to auscultate bilaterally, No wheezing, rhonchi, crackles Heart: Peripheral pulses intact bilaterally, Regular Rate and Rhythm. Abdomen: Soft, non-tender, non-distended, no palpable masses Musculoskeletal: Normal range of motion and strength, No cyanosis or edema, No visible joint swelling Skin: Skin is warm, dry, no rashes or lesions. Psychiatric: Cooperative, appropriate mood and affect, Awake and alert, not agitated Neuro: Cranial nerves II-XII grossly intact. Strength 5/5 throughout. Sensations intact to light touch. Objective Labs 01/02/25 05:15 01/02/25 05:15 Labs: Laboratory Results - last 24 hr 01/01/25 01/02/25 13:14 05:15 WBC 7.3 RBC 4.11 L Hgb 12.3 L Hct 35.5 L MCV 86 MCH 29.9 MCHC 34.6 RDW Std Deviation 40.0 Plt Count 114 L Neut % (Auto) 66 Lymph % (Auto) 21 [place] % (Auto) 12 Eos % (Auto) 1 Baso % (Auto) 1 Neut # (Auto) 4.8 Lymph # (Auto) 1.5 [place] # (Auto) 0.9 H Eos # (Auto) 0.1 Baso # (Auto) 0.0 Immature Gran # (Auto) 0.03 H Absolute Nucleated RBC 0.00 Immature Gran % 0 Nucleated RBC % 0 Sodium 131 L 132 L Potassium 4.2 D Chloride 97 L Carbon Dioxide 26.8 Anion Gap 8 BUN 6 L Creatinine 0.9 Estim Creat Clear Calc 73.3 eGFR > 60 BUN/Creatinine Ratio 7 L Glucose 91 Calculated Osmolality 262 L Calcium 7.7 L Corrected Calcium 8.2 L Magnesium 1.9 Total Bilirubin 0.7 D AST 38 H ALT 41 Alkaline Phosphatase 92 D Total Protein 5.4 L Albumin 3.4 L Globulin 2.0 L Albumin/Globulin Ratio 1.7 Quality Measures Quality Measures VTE prophylaxis Assessment & Plan Assessment Current Active Medications: Generic Name Dose Route Start Last Admin Trade Name Freq PRN Reason Stop Dose Admin Acetaminophen 500 mg 12/31/24 15:36 Acetaminophen 500 Mg Tablet PO 01/30/25 15:35 Q6HR PRN fever >99 or pain 1-4 Al Hydrox/Mg Hydrox/Simethicone 15 ml 01/01/25 18:45 01/02/25 05:48 Mg Hyd/Al Hyd/Manpreet (Maalox Reg) Susp 30 Ml Udc PO 01/31/25 18:44 15 ml Q4HR NICOLAS Administration Dextrose 50 ml 12/31/24 01:39 Dextrose 50%-Water Inj 50 Ml Syringe IV 01/30/25 01:38 Q15MIN PRN BG <50 OR BG <70 & pt unresponsive Diazepam 5 mg 12/31/24 03:06 Diazepam Inj 5 Mg/Ml Vial 2 Ml IVP Q2H PRN Breakthrough Agitation Folic Acid 1 mg 01/03/25 09:00 Folic Acid 1 Mg Tablet PO 02/02/25 08:59 QDAY NICOLAS Glucagon 1 mg 12/31/24 01:39 Glucagon Inj 1 Mg Vial IM Q15MIN PRN BG <70, and no IV access Ceftriaxone Sodium/Dextrose 1 gm in 50 mls @ 100 mls/hr 12/31/24 09:00 01/02/25 09:58 Rocephin/D5w 1gm Iv Premix IV 01/07/25 08:59 100 mls/hr QDAY NICOLAS Administration Octreotide Acetate 1,000 mcg/ 102 mls @ 5.1 mls/hr 01/01/25 18:26 01/01/25 21:36 Sodium Chloride IV 01/06/25 18:26 50 mcg/hr .Q20H NICOLAS 5.1 mls/hr Protocol Administration 50 MCG/HR Lorazepam 0.5 mg 12/31/24 08:31 01/01/25 05:27 Lorazepam 0.5 Mg Tablet PO 01/05/25 08:30 0.5 mg Q4HR PRN Administration CIWA Score 2-6 Lorazepam 1 mg 12/31/24 08:31 12/31/24 16:21 Lorazepam 0.5 Mg Tablet PO 01/05/25 08:30 1 mg Q4HR PRN Administration CIWA SCORE 7-11 Lorazepam 2 mg 12/31/24 08:31 Lorazepam 0.5 Mg Tablet PO 01/05/25 08:30 Q4HR PRN CIWA SCORE 12-15 Ondansetron HCl 4 mg 12/31/24 01:29 Ondansetron Inj 2 Mg/Ml Inj 2 Ml IVP 01/30/25 01:28 Q6H PRN NAUSEA OR VOMITING Protocol Pantoprazole Sodium 40 mg 12/31/24 01:30 01/02/25 09:58 Pantoprazole Inj 40 Mg Vial IVP 01/30/25 01:29 40 mg BID NICOLAS Administration Sucralfate 1 gm 01/01/25 21:00 01/02/25 05:48 Sucralfate Susp 1 Gm/10 Ml Udc PO 01/31/25 20:59 1 gm QID NICOLAS Administration Thiamine HCl 100 mg 01/03/25 09:00 Thiamine 100 Mg Tablet PO 02/02/25 08:59 QDAY NICOLAS Plan 54-year-old male past medical significant for alcohol use disorder, anxiety, hypertension, presented to the hosptial on 12/31/2024 due to 3 day history of headache associated with nausea and vomiting, and blurry vision. Patient is admitted for management evaluation of symptomatic hyponatremia and alcohol withdrawal. Nephrology has been consulted for management of hyponatremia. #Hypotonic Hypovolemic Hyponatremia - Resolving #Vomiting/GI losses VS possibly superimposed SIADH - On admission: Na: 120 (<136, hyponatremia), calculated osmolality: 245 (<275, Hypo-osmolar) - Patient looked dehydrated with dry mucous membrane, tachycardia, poor skin turgor. - Urine Osmolality: ~510 (based on Urine specific gravity of 1.017 on admission) which is >100 signifying concentrated urine. With patient's chronic hyponatremic state, this could signify superimposed SIADH. - BUN:5, in lower range (low in SIADH and high in true hypovolemia) - TSH: 1.19. Within normal range. Hypothyrodism ruled out (can mimic SIADH) -Beer Potomania is classically assocated with hyponatremia due to low solute intake; Beer provides water and carbs but very little sodium/protein with low serm osmolality. However, Urine is usually dilute (low urine osmolality <100 mOsm/kg) because kidney is trying to excrete free water. -Na:132, BUN:6, Cr:0.9, eGFR>60 Plan: -CTM eletrolyte levels. -Check Uric acid level (low in SIADH and high in hypovolemia) -Goal correction of 6-8 meq in 24 hours, as sodium was over corrected to 9, continue D5W -Continue Fluid restriction -Patient has been placed on CIWA protocol -Strict ins and outs -Thiamine 100mg IVP Qday -Folic acid 1 mg daily -Protonix 40 mg IV BID -Zofran 4 mg Q6h prn #Upper versus lower GI bleed #Hematemesis #History of anxiety #History of hypertension -Management per Primary Hospitalist team Thank you for allowing us to participate in the care of your patient. Patient is stable in nephrology standpoint. No further recommendations. Assessment and plan discussed with my attending physician Dr. Sharon Agudelo (PGY-1)- Internal medicine resident Attending Provider Attestation/Addendum patient currently seen and examined with resident physician Dr. Agudelo. Note reviewed, agree with findings and recommendations. Patient currently seen in telemetry. Sodium kaylin from 123-130. Agree with the D5W. Hyponatremia-combination of nausea vomiting in the setting of beer potomania. Agree with fluid restriction. Did receive 1 bag of 3% hypertonic saline. Will monitor serum sodium closely. No more than 6 mEq rise in serum sodium in 24 hours. Spoke to primary team 01/02/2025 patient more alert and awake. Sodium 132. DC D5W. Noted patient had endoscopy. Showed Melina-Kruger tear. Dr. Rogel started patient on octreotide for 5 days. On PPI.
[2025-01-02 12:00] VITALS: BP 132/83; PULSE 70; PULSE 86; RESP 19; TEMP 36.7; O2SAT 95
--- NOTE | 2025-01-02 13:23 | ESPR_ITS ---
<Statement entered by Jerome Quintanilla MD - 01/02/25 13:57> No acute overnight events. Seen and examined at bedside and patient resting comfortably in bed. He was able to tolerate his clear liquid diet without any nausea or abdominal pain and is asking for more food. Will start peptic ulcer disease diet with pur?ed modification and advance as tolerated. Touch base with GI who recommended to keep patient here for 5 days on octreotide given oozing from Melina-Kruger tear, presence of ulcers and esophageal ulcer oozing blood. GI also initiated sucralfate and Maalox alongside octreotide. Will continue to monitor patient is diet is advanced. ----- Note reviewed and agree with care plan as documented. Please refer to the note below for further details. Plan discussed with attending physician Dr. Jaleel Quintanilla MD PGY-2 Internal Medicine Documentation for date of: 01/02/25 Subjective Subjective Interval history: No acute overnight events. Seen and examined at bedside and patient resting comfortably in bed. Patient has had CIWA score 0-1 on checks during the past 24 hours. Personal CIWA score of 0, thus chlordiazepoxide was discontinued. Additionally, nephrology states that patient no longer requires IVF and will allow Na to correct on its own and in agreement with plan. After completion of EGD showing bleeding Melina-Kruger tears, and repair with heater probe in the center of the tear, as well as many other esophageal ulcers oozing blood, GI made recommendations for octreotide 50mcg which the patient will complete inpatient over 5 days. Exam Vital Signs Temp Pulse Resp BP Pulse Ox O2 Del Method O2 Flow Rate 98.1 F 70 19 132/83 H 95 Room Air 3 01/02/25 12:01/02/25 12:01/02/25 12:01/02/25 12:01/02/25 12:01/02/25 12:01/01/25 18:35 Narrative Exam General: Alert, no acute distress.Conversational, WDWN, in no acute distress. Well-groomed. Skin: Warm, dry, intact. No rash or ecchymoses. Head: Normocephalic, atraumatic. Eye: Injected conjunctiva, negative for papilledema on funduscopy exam PERRL. Throat: mucosa moist. No obvious lesions in oropharynx. Cardiovascular: Regular rate and rhythm, no murmur, +S1/S2. Respiratory: Lungs are clear to auscultation, respirations unlabored, no crackles, no wheezing. Gastrointestinal: Soft, nontender, non-distended. No guarding or rebound tenderness. Extremities: No edema, no cyanosis, no clubbing. Neuro: Alert and oriented x3.No focal deficits observed. Conversant, moving all extremities. No overt cerebellar signs/incoordination. Psychiatric: Cooperative, appropriate affect Objective Labs 01/03/25 05:25 01/03/25 05:25 Labs: Laboratory Results - last 24 hr 01/01/25 01/02/25 13:14 05:15 WBC 7.3 RBC 4.11 L Hgb 12.3 L Hct 35.5 L MCV 86 MCH 29.9 MCHC 34.6 RDW Std Deviation 40.0 Plt Count 114 L Neut % (Auto) 66 Lymph % (Auto) 21 [place] % (Auto) 12 Eos % (Auto) 1 Baso % (Auto) 1 Neut # (Auto) 4.8 Lymph # (Auto) 1.5 [place] # (Auto) 0.9 H Eos # (Auto) 0.1 Baso # (Auto) 0.0 Immature Gran # (Auto) 0.03 H Absolute Nucleated RBC 0.00 Immature Gran % 0 Nucleated RBC % 0 Sodium 131 L 132 L Potassium 4.2 D Chloride 97 L Carbon Dioxide 26.8 Anion Gap 8 BUN 6 L Creatinine 0.9 Estim Creat Clear Calc 73.3 eGFR > 60 BUN/Creatinine Ratio 7 L Glucose 91 Calculated Osmolality 262 L Calcium 7.7 L Corrected Calcium 8.2 L Magnesium 1.9 Total Bilirubin 0.7 D AST 38 H ALT 41 Alkaline Phosphatase 92 D Total Protein 5.4 L Albumin 3.4 L Globulin 2.0 L Albumin/Globulin Ratio 1.7 Quality Measures Quality Measures VTE prophylaxis Assessment & Plan Assessment Current Active Medications: Generic Name Dose Route Start Last Admin Trade Name Freq PRN Reason Stop Dose Admin Acetaminophen 500 mg 12/31/24 15:36 Acetaminophen 500 Mg Tablet PO 01/30/25 15:35 Q6HR PRN fever >99 or pain 1-4 Al Hydrox/Mg Hydrox/Simethicone 15 ml 01/01/25 18:45 01/02/25 10:41 Mg Hyd/Al Hyd/Manpreet (Maalox Reg) Susp 30 Ml Udc PO 01/31/25 18:44 15 ml Q4HR NICOLAS Administration Dextrose 50 ml 12/31/24 01:39 Dextrose 50%-Water Inj 50 Ml Syringe IV 01/30/25 01:38 Q15MIN PRN BG <50 OR BG <70 & pt unresponsive Diazepam 5 mg 12/31/24 03:06 Diazepam Inj 5 Mg/Ml Vial 2 Ml IVP Q2H PRN Breakthrough Agitation Folic Acid 1 mg 01/03/25 09:00 Folic Acid 1 Mg Tablet PO 02/02/25 08:59 QDAY NICOLAS Glucagon 1 mg 12/31/24 01:39 Glucagon Inj 1 Mg Vial IM Q15MIN PRN BG <70, and no IV access Ceftriaxone Sodium/Dextrose 1 gm in 50 mls @ 100 mls/hr 12/31/24 09:00 01/02/25 09:58 Rocephin/D5w 1gm Iv Premix IV 01/07/25 08:59 100 mls/hr QDAY NICOLAS Administration Octreotide Acetate 1,000 mcg/ 102 mls @ 5.1 mls/hr 01/01/25 18:26 01/01/25 21:36 Sodium Chloride IV 01/06/25 18:26 50 mcg/hr .Q20H NICOLAS 5.1 mls/hr Protocol Administration 50 MCG/HR Lorazepam 0.5 mg 12/31/24 08:31 01/01/25 05:27 Lorazepam 0.5 Mg Tablet PO 01/05/25 08:30 0.5 mg Q4HR PRN Administration CIWA Score 2-6 Lorazepam 1 mg 12/31/24 08:31 12/31/24 16:21 Lorazepam 0.5 Mg Tablet PO 01/05/25 08:30 1 mg Q4HR PRN Administration CIWA SCORE 7-11 Lorazepam 2 mg 12/31/24 08:31 Lorazepam 0.5 Mg Tablet PO 01/05/25 08:30 Q4HR PRN CIWA SCORE 12-15 Ondansetron HCl 4 mg 12/31/24 01:29 Ondansetron Inj 2 Mg/Ml Inj 2 Ml IVP 01/30/25 01:28 Q6H PRN NAUSEA OR VOMITING Protocol Pantoprazole Sodium 40 mg 12/31/24 01:30 01/02/25 09:58 Pantoprazole Inj 40 Mg Vial IVP 01/30/25 01:29 40 mg BID NICOLAS Administration Sucralfate 1 gm 01/01/25 21:00 01/02/25 12:14 Sucralfate Susp 1 Gm/10 Ml Udc PO 01/31/25 20:59 1 gm QID NICOLAS Administration Thiamine HCl 100 mg 01/03/25 09:00 Thiamine 100 Mg Tablet PO 02/02/25 08:59 QDAY NICOLAS Plan Sukumar Pires is a 54-year-old male with a history of alcohol use disorder, anxiety, and hypertension who is admitted for management of symptomatic hyponatremia, alcohol withdrawal, and upper GI bleed. #Symptomatic hyponatremia, improving #Beer potomania #Alcohol use disorder, chronic #Transaminits Has chronic history of alcohol use disorder, drinks average 12-17 beers per day. Initial sodium of 120, osmolality 245 and likely secondary to beer potomania given history of heavy beer consumption. Initially overcorrected but now within range and no longer requiring IVF or frequent Na checks. ? Patient has had CIWA score 0-1 on checks during the past 24 hours. Thus chlordiazepoxide was discontinued. - No longer requiring IVF or frequent Na checks - Strict ins and outs - Nephrology consulted, appreciate recs - Thiamine 100 mg and folic acid 1 mg daily - CIWA protocol - Chlordiazepoxide 25 mg BID -discontinued #Upper versus lower GI bleed #Hematemesis DDX: esophageal varices vs Melina-Kruger tear Concern for possible esophageal varice given hematemesis in the setting of chronic alcohol use. Vitals show hemodynamic stability and hemoglobin stable as well. Hepatitis panel non-reactive. EGD 01/01 revealed medium bleeding Melina-Kruger tear with stigmata of recent bleeding. Repaired in the center with bipolar gold heater probe. Additionally found many linear esophageal ulcers oozing blood in the lower third of the esophagus. Diffuse moderate inflammation in the entire examined stomach. Normal second portion of the duodenum. 1 cratered esophageal ulcer oozing blood at the gastroesophageal junction. - GI consulted, appreciate recs - Sucralfate suspension 1 g 4 times daily, - Maalox 15 mL orally every 4 hours - Octreotide 50 mcg IV push followed by 50 mcg/h infusion - Starting on clear liquid diet - Protonix 40 mg IV BID - Zofran 4 mg prn - Diet n.p.o. - Monitor H&H and transfuse if hemoglobin < 7 #History of anxiety #History of hypertension Chronic condition, patient is on no medication for anxiety. Does not recalled anti-hypertensive meds. - Continue to monitor vitals #Hypophosphatemia #Hypocalcemia, resolved - Follow-up AM labs and replete as needed Hospital management: Disposition: tele symptomatic management and alcohol use disorder evaluation and management, pending EGD Lines: peripheral IV Diet: PUD/GERD/bland GI prophylaxis: pantoprazole DVT prophylaxis: SCDs CODE STATUS: Full code ----- Plan discussed with attending physician Dr. Jaleel Quintanilla MD PGY-2 Internal Medicine Attending Provider Attestation/Addendum I attest that I was physically present for the evaluation, physical examination, lab and imaging review of the patient with the residents. I discussed the case with the residents and agree with the findings and plans of care as documented above. Keisha Marmolejo MD
[2025-01-02] MEDS: OCTREOTIDE ACET INJ 1,000 MCG in SODIUM CHLORIDE 0.9% 100 ML 5.1 MCG IV (14:56)
[2025-01-02 16:00] VITALS: BP 110/80; PULSE 67; PULSE 78; RESP 17; TEMP 36.7; O2SAT 99
[2025-01-02 20:00] VITALS: BP 150/66; PULSE 71; PULSE 85; RESP 17; TEMP 36.2; O2SAT 96
--- NOTE | 2025-01-02 20:06 | PD.IMPROG ---
Documentation for date of: 01/02/25 Subjective Subjective Interval history: Patient evaluated case discussed with the internal medicine team Upper endoscopy showed Melina-Kruger tear requiring bipolar gold heater probe to stop the bleeding multiple distal esophageal ulcer and oozing of blood Octreotide infusion for 5 days Exam Vital Signs Temp Pulse Resp BP Pulse Ox O2 Del Method O2 Flow Rate 98.1 F 78 17 110/80 99 Room Air 3 01/02/25 16:00 01/02/25 16:00 01/02/25 16:00 01/02/25 16:00 01/02/25 16:00 01/02/25 16:00 01/01/25 18:35 Objective Labs 01/02/25 05:15 01/02/25 05:15 Labs: Laboratory Results - last 24 hr 01/02/25 05:15 WBC 7.3 RBC 4.11 L Hgb 12.3 L Hct 35.5 L MCV 86 MCH 29.9 MCHC 34.6 RDW Std Deviation 40.0 Plt Count 114 L Neut % (Auto) 66 Lymph % (Auto) 21 [place] % (Auto) 12 Eos % (Auto) 1 Baso % (Auto) 1 Neut # (Auto) 4.8 Lymph # (Auto) 1.5 [place] # (Auto) 0.9 H Eos # (Auto) 0.1 Baso # (Auto) 0.0 Immature Gran # (Auto) 0.03 H Absolute Nucleated RBC 0.00 Immature Gran % 0 Nucleated RBC % 0 Sodium 132 L Potassium 4.2 D Chloride 97 L Carbon Dioxide 26.8 Anion Gap 8 BUN 6 L Creatinine 0.9 Estim Creat Clear Calc 73.3 eGFR > 60 BUN/Creatinine Ratio 7 L Glucose 91 Calculated Osmolality 262 L Calcium 7.7 L Corrected Calcium 8.2 L Magnesium 1.9 Total Bilirubin 0.7 D AST 38 H ALT 41 Alkaline Phosphatase 92 D Total Protein 5.4 L Albumin 3.4 L Globulin 2.0 L Albumin/Globulin Ratio 1.7 Impressions Impression: Large Melina-Kruger tear Multiple ulcers esophagus Upper GI mucosal oozing of blood Continue octreotide for 5 days And advance diet as tolerated Assessment & Plan A&P Narrative # Nausea vomiting # Hematemesis # transaminitis due to alcohol consumption # Gross electrolyte abnormalities Plan Agree with the current management Clear liquid diet a.m. till 10 AM then n.p.o. Consent obtained for fiberoptic esophagogastroduodenoscopy with possible biopsy possible therapeutic intervention scheduled for tomorrow evening Agree with IV Protonix Counseled the patient on the virtues of complete abstinence from alcohol Will follow the patient Thank you very much for the opportunity to participate in the care of this patient Time Spent With Patient Time: Total time spent is greater than 50% in coordination of care (as documented) at patient's floor/unit and/or counseling patient:
[2025-01-02] MEDS: ACETAMINOPHEN 500 MG TABLET PO (20:28)
[2025-01-03] VITALS: BP 124/77; PULSE 66; PULSE 76; RESP 12; TEMP 36.3; O2SAT 99
[2025-01-03] MEDS: MG HYD/AL HYD/SIME (Maalox Reg) SUSP 30 ML UDC 15 ML PO ×4 (02:04→14:32)
[2025-01-03 04:00] VITALS: BP 113/77; PULSE 68; PULSE 69; RESP 15; TEMP 36.7; O2SAT 99
[2025-01-03] MEDS: SUCRALFATE SUSP 1 GM/10 ML UDC PO ×2 (05:51→11:05)
[2025-01-03 05:52] LABS: Basophils # (Auto) 0.0 Thou/mm3 (0.0-0.2); Basophils % (Auto) 0 % (0-2.5); Eosinophils # (Auto) 0.0 Thou/mm3 (0.0-0.5); Eosinophils % (Auto) 1 % (0-10); Hematocrit 35.4 % (41.0-53.0); Hemoglobin 12.1 g/dL (13.5-16.0); Immature Granulocytes Auto 0.03 Thou/mm3 (0.00-0.00); Lymphocytes # (Auto) 1.3 Thou/mm3 (1.0-4.8); Lymphocytes % (Auto) 23 % (10-50); Mean Corpuscular HGB Conc 34.2 g/dl (31.0-37.0); Mean Corpuscular Hemoglobin 30.0 pg (25.0-35.0); Mean Corpuscular Volume 88 fL (80-100); Monocytes # (Auto) 0.9 Thou/mm3 (0.0-0.8); Monocytes % (Auto) 16 % (0-12); Neutrophils # (Auto) 3.5 Thou/mm3 (1.8-7.7); Neutrophils % (Auto) 60 % (37-80); Nucleated Red Blood Cell # 0.00 Thou/mm3 (0.00-0.00); Nucleated Red Blood Cell % 0 /100 WBC (0); Platelet Count 161 Thou/mm3 (140-440); RDW Standard Deviation 41.0 fL (35.1-43.9); Red Blood Count 4.04 Miln/mm3 (4.50-5.90); White Blood Count 5.8 Thou/mm3 (3.8-10.6)
[2025-01-03 05:57] VITALS: BMI 23.3
[2025-01-03 06:33] LABS: Alanine Aminotransferase 33 U/L (10-49); Albumin, Serum 3.4 gm/dL (3.5-5.0); Albumin/Globulin Ratio 1.7 (1.2-2.2); Alkaline Phosphatase 82 U/L (46-116); Anion Gap 8 (7-16); Aspartate Amino Transferase 23 U/L (0-34); BUN/Creatinine Ratio 8 Ratio (12-20); Bilirubin,Total 0.4 mg/dL (0.3-1.2); Blood Urea Nitrogen 7 mg/dL (9-23); Calcium 8.5 mg/dL (8.3-10.6); Calcium (Corrected) 9.0 mg/dL (8.5-10.1); Carbon Dioxide 30.9 mMol/L (20.0-31.0); Chloride 98 mMol/L (98-107); Creatinine (Component) 0.9 mg/dL (0.6-1.3); Estimated Creatinine Clearance 70.2 mL/min (>60); Globulin 2.0 gm/dL (2.3-3.5); Glucose 144 mg/dL (74-106); Magnesium 2.2 mg/dL (1.6-2.6); Osmolality,Calculated 274 (275-295); Phosphorous 2.1 mg/dL (2.4-5.1); Potassium 4.0 mMol/L (3.4-5.1); Sodium 137 mMol/L (136-145); Total Protein 5.4 gm/dL (5.7-8.2); eGFR > 60 See Note
--- NOTE | 2025-01-03 07:10 | ESPR_ITS ---
Documentation for date of: 01/03/25 Subjective Subjective Interval history: 54-year-old male past medical significant for alcohol use disorder, anxiety, hypertension, presented to the hosptial on 12/31/2024 due to 3 day history of headache associated with nausea and vomiting, and blurry vision. He describes progressive generalized weakness, to the extent that he required asisstance to stand. During this illness, he experienced 3 ground level falls; denies any loss of consciousness and reports no focal neurologic deficits. He admits to heavy alcohol consumption (approximtely 17 bers daily) and states his last alcoholic drink was yesterday at 4pm. The patient confirms the presence of blood in his vomitus and endorses visual and auditory hallucinations. Denies chest pain, palpation, SOB, abdominal pain, fevers or chills. Patient is admitted for management evaluation of symptomatic hyponatremia and alcohol withdrawal. Nephrology has been consulted for management of hyponatremia. ED Course: -Initial vitals were BP 139/92, pulse 84, RR 20, temp 98.8, O2 sat 97% on room air. -Labs significant for sodium 120, osmolality 245,chloride 82, glucose 206, bili 1.7, AST 115, ALT 76 -Imaging included a CT head negative for acute hemorrhage. EKG showed sinus rhythm -In the ED, patient was given 0.5 L of NS and ativan 1 mg x 1 Past Medical History: Hypertension, anxiety Family History: Not contributory Surgical History: None Social History: Denies history of smoking, denies recreational drug use. Started drinking since he was 18 years old, averaging 12 through 17 beer per day. Current Medications: Antihypertensive (but patient is not sure) Allergies: No known drug allergies 12/31/2024: Labs reviewed and patient examined at the bedside. Patient's symptomatic hyponatremia likely due to Hypotonic Hypovolemic Hyponatremia likely due to nausea and vomiting caused by alcohol intoxication. Since sodium has been over-corrected from 120 to 132 within 24 hrs, patient needs to take D5W IVF. Denies chest pain, palpation, SOB, abdominal pain, fevers or chills. 01/01/2025: Labs reviewed and patient examined at the bedside. Currently Sodium level 130. Patient lies comfortable in bed. No new symptoms, No tremors or asterixis. Patient currently stable. 01/02/2025: Labs reviewed and patient examined at the bedside. EGD yesterday showed Melina Kruger tear at GE junction and esophageal ulcer. Rneal banda currently stable. Na:132, BUN:6, Cr:0.9, eGFR>60. Hyponatremia is resolving. Patient is free to discharge in nephrology standpoint. Alcohol cessation is required. 01/03/2025: Labs reviewed and patient examined at the bedside. Patient needs to complete 5 days of octreotide for management of Mallor Kruger tear. Will likely be able to get discharged on monday, or monday evening. Renal banda, currently stable. No symptoms to report. Na: 137, BUN:7, Cr:0.9, GFR>60. Exam Vital Signs Temp Pulse Resp BP Pulse Ox O2 Del Method O2 Flow Rate 98.1 F 69 15 113/77 99 Room Air 3 01/03/25 04:00 01/03/25 04:00 01/03/25 04:00 01/03/25 04:00 01/03/25 04:00 01/03/25 04:00 01/01/25 18:35 Narrative Exam General: No acute distress, AAO x3, Weak appearing Eye: PERRL, EOMI, Red conjunctiva, no scleral icterus HENT: Normocephalic, atraumatic, hearing intact to conversation at normal volume, moist oral mucosa Neck: Supple, non-tender, no JVD, no lymphadenopathy Lungs: Non-labored respirations, symmetric chest rise, Clear to auscultate bilaterally, No wheezing, rhonchi, crackles Heart: Peripheral pulses intact bilaterally, Regular Rate and Rhythm. Abdomen: Soft, non-tender, non-distended, no palpable masses Musculoskeletal: Normal range of motion and strength, No cyanosis or edema, No visible joint swelling Skin: Skin is warm, dry, no rashes or lesions. Psychiatric: Cooperative, appropriate mood and affect, Awake and alert, not agitated Neuro: Cranial nerves II-XII grossly intact. Strength 5/5 throughout. Sensations intact to light touch. Objective Labs 01/03/25 05:25 01/03/25 05:25 Labs: Laboratory Results - last 24 hr 01/03/25 05:25 WBC 5.8 RBC 4.04 L Hgb 12.1 L Hct 35.4 L MCV 88 MCH 30.0 MCHC 34.2 RDW Std Deviation 41.0 Plt Count 161 D Neut % (Auto) 60 Lymph % (Auto) 23 Hendricks % (Auto) 16 H Eos % (Auto) 1 Baso % (Auto) 0 Neut # (Auto) 3.5 Lymph # (Auto) 1.3 Hendricks # (Auto) 0.9 H Eos # (Auto) 0.0 Baso # (Auto) 0.0 Immature Gran # (Auto) 0.03 H Absolute Nucleated RBC 0.00 Immature Gran % 1 H Nucleated RBC % 0 Sodium 137 Potassium 4.0 Chloride 98 Carbon Dioxide 30.9 Anion Gap 8 BUN 7 L Creatinine 0.9 Estim Creat Clear Calc 70.2 eGFR > 60 BUN/Creatinine Ratio 8 L Glucose 144 H D Calculated Osmolality 274 L Calcium 8.5 Corrected Calcium 9.0 Phosphorus 2.1 L Magnesium 2.2 Total Bilirubin 0.4 AST 23 ALT 33 Alkaline Phosphatase 82 Total Protein 5.4 L Albumin 3.4 L Globulin 2.0 L Albumin/Globulin Ratio 1.7 Quality Measures Quality Measures VTE prophylaxis Assessment & Plan Assessment Current Active Medications: Generic Name Dose Route Start Last Admin Trade Name Freq PRN Reason Stop Dose Admin Acetaminophen 500 mg 12/31/24 15:36 01/02/25 20:28 Acetaminophen 500 Mg Tablet PO 01/30/25 15:35 500 mg Q6HR PRN Administration fever >99 or pain 1-4 Al Hydrox/Mg Hydrox/Simethicone 15 ml 01/01/25 18:45 01/03/25 05:51 Mg Hyd/Al Hyd/Manpreet (Maalox Reg) Susp 30 Ml Udc PO 01/31/25 18:44 15 ml Q4HR NICOLAS Administration Dextrose 50 ml 12/31/24 01:39 Dextrose 50%-Water Inj 50 Ml Syringe IV 01/30/25 01:38 Q15MIN PRN BG <50 OR BG <70 & pt unresponsive Diazepam 5 mg 12/31/24 03:06 Diazepam Inj 5 Mg/Ml Vial 2 Ml IVP Q2H PRN Breakthrough Agitation Folic Acid 1 mg 01/03/25 09:00 Folic Acid 1 Mg Tablet PO 02/02/25 08:59 QDAY NICOLAS Glucagon 1 mg 12/31/24 01:39 Glucagon Inj 1 Mg Vial IM Q15MIN PRN BG <70, and no IV access Ceftriaxone Sodium/Dextrose 1 gm in 50 mls @ 100 mls/hr 12/31/24 09:00 01/02/25 09:58 Rocephin/D5w 1gm Iv Premix IV 01/07/25 08:59 100 mls/hr QDAY NICOLAS Administration Octreotide Acetate 1,000 mcg/ 102 mls @ 5.1 mls/hr 01/01/25 18:26 01/02/25 14:56 Sodium Chloride IV 01/06/25 18:26 50 mcg/hr .Q20H NICOLAS 5.1 mls/hr Protocol Administration 50 MCG/HR Lorazepam 0.5 mg 12/31/24 08:31 01/01/25 05:27 Lorazepam 0.5 Mg Tablet PO 01/05/25 08:30 0.5 mg Q4HR PRN Administration CIWA Score 2-6 Lorazepam 1 mg 12/31/24 08:31 12/31/24 16:21 Lorazepam 0.5 Mg Tablet PO 01/05/25 08:30 1 mg Q4HR PRN Administration CIWA SCORE 7-11 Lorazepam 2 mg 12/31/24 08:31 Lorazepam 0.5 Mg Tablet PO 01/05/25 08:30 Q4HR PRN CIWA SCORE 12-15 Ondansetron HCl 4 mg 12/31/24 01:29 Ondansetron Inj 2 Mg/Ml Inj 2 Ml IVP 01/30/25 01:28 Q6H PRN NAUSEA OR VOMITING Protocol Pantoprazole Sodium 40 mg 12/31/24 01:30 01/02/25 20:28 Pantoprazole Inj 40 Mg Vial IVP 01/30/25 01:29 40 mg BID NICOLAS Administration Sucralfate 1 gm 01/01/25 21:00 01/03/25 05:51 Sucralfate Susp 1 Gm/10 Ml Udc PO 01/31/25 20:59 1 gm QID NICOLAS Administration Thiamine HCl 100 mg 01/03/25 09:00 Thiamine 100 Mg Tablet PO 02/02/25 08:59 QDAY NICOLAS Plan 54-year-old male past medical significant for alcohol use disorder, anxiety, hypertension, presented to the hosptial on 12/31/2024 due to 3 day history of headache associated with nausea and vomiting, and blurry vision. Patient is admitted for management evaluation of symptomatic hyponatremia and alcohol withdrawal. Nephrology has been consulted for management of hyponatremia. #Hypotonic Hypovolemic Hyponatremia - Resolved #Vomiting/GI losses-Resolved - On admission: Na: 120 (<136, hyponatremia), calculated osmolality: 245 (<275, Hypo-osmolar) - Patient looked dehydrated with dry mucous membrane, tachycardia, poor skin turgor. - Urine Osmolality: ~510 (based on Urine specific gravity of 1.017 on admission) which is >100 signifying concentrated urine. With patient's chronic hyponatremic state, this could signify superimposed SIADH. - BUN:5, in lower range (low in SIADH and high in true hypovolemia) - TSH: 1.19. Within normal range. Hypothyrodism ruled out (can mimic SIADH) -Beer Potomania is classically assocated with hyponatremia due to low solute intake; Beer provides water and carbs but very little sodium/protein with low serm osmolality. However, Urine is usually dilute (low urine osmolality <100 mOsm/kg) because kidney is trying to excrete free water. -Na:137, BUN:7, Cr:0.9, eGFR>60 Plan: -CTM eletrolyte levels. -Patient has been placed on CIWA protocol -Strict ins and outs -Thiamine 100mg IVP Qday -Folic acid 1 mg daily -Protonix 40 mg IV BID -Zofran 4 mg Q6h prn #Upper versus lower GI bleed #Hematemesis #History of anxiety #History of hypertension -Management per Primary Hospitalist team Thank you for allowing us to participate in the care of your patient. Patient is stable in nephrology standpoint. No further recommendations. Assessment and plan discussed with my attending physician Dr. Sharon Agudelo (PGY-1)- Internal medicine resident Attending Provider Attestation/Addendum patient currently seen and examined with resident physician Dr. Agudelo. Note reviewed, agree with findings and recommendations. Patient currently seen in telemetry. Sodium kaylin from 123-130. Agree with the D5W. Hyponatremia-combination of nausea vomiting in the setting of beer potomania. Agree with fluid restriction. Did receive 1 bag of 3% hypertonic saline. Will monitor serum sodium closely. No more than 6 mEq rise in serum sodium in 24 hours. Spoke to primary team 01/03/2025 patient more alert and awake. Sodium 138. DC D5W. Noted patient had endoscopy. Showed Melina-Kruger tear. Dr. oRgel started patient on octreotide for 5 days. On PPI. Hemoglobin stable. Patient is going to discharge today
[2025-01-03 07:56] VITALS: BP 103/83; PULSE 92; RESP 17; TEMP 36.2; O2SAT 98
[2025-01-03 08:00] VITALS: PULSE 86
[2025-01-03] MEDS: THIAMINE 100 MG TABLET PO (08:04)
[2025-01-03] MEDS: FOLIC ACID 1 MG TABLET PO (08:04)
[2025-01-03] MEDS: cefTRIAXone/D5w 1gm IV premix 1 GM/50 ML BAG IV (08:05)
--- NOTE | 2025-01-03 08:14 | PD.RESPRO ---
Documentation for date of: 01/03/25 Exam Vital Signs Temp Pulse Resp BP Pulse Ox O2 Del Method O2 Flow Rate 97.2 F 92 17 103/83 98 Room Air 3 01/03/25 07:56 01/03/25 07:56 01/03/25 07:56 01/03/25 07:56 01/03/25 07:56 01/03/25 07:56 01/01/25 18:35 Objective Labs 01/03/25 05:25 01/03/25 05:25 Labs: Laboratory Results - last 24 hr 01/03/25 05:25 WBC 5.8 RBC 4.04 L Hgb 12.1 L Hct 35.4 L MCV 88 MCH 30.0 MCHC 34.2 RDW Std Deviation 41.0 Plt Count 161 D Neut % (Auto) 60 Lymph % (Auto) 23 [place] % (Auto) 16 H Eos % (Auto) 1 Baso % (Auto) 0 Neut # (Auto) 3.5 Lymph # (Auto) 1.3 [place] # (Auto) 0.9 H Eos # (Auto) 0.0 Baso # (Auto) 0.0 Immature Gran # (Auto) 0.03 H Absolute Nucleated RBC 0.00 Immature Gran % 1 H Nucleated RBC % 0 Sodium 137 Potassium 4.0 Chloride 98 Carbon Dioxide 30.9 Anion Gap 8 BUN 7 L Creatinine 0.9 Estim Creat Clear Calc 70.2 eGFR > 60 BUN/Creatinine Ratio 8 L Glucose 144 H D Calculated Osmolality 274 L Calcium 8.5 Corrected Calcium 9.0 Phosphorus 2.1 L Magnesium 2.2 Total Bilirubin 0.4 AST 23 ALT 33 Alkaline Phosphatase 82 Total Protein 5.4 L Albumin 3.4 L Globulin 2.0 L Albumin/Globulin Ratio 1.7 Quality Measures Quality Measures VTE prophylaxis Assessment & Plan Assessment Current Active Medications: Generic Name Dose Route Start Last Admin Trade Name Freq PRN Reason Stop Dose Admin Acetaminophen 500 mg 12/31/24 15:36 01/02/25 20:28 Acetaminophen 500 Mg Tablet PO 01/30/25 15:35 500 mg Q6HR PRN Administration fever >99 or pain 1-4 Al Hydrox/Mg Hydrox/Simethicone 15 ml 01/01/25 18:45 01/03/25 05:51 Mg Hyd/Al Hyd/Manpreet (Maalox Reg) Susp 30 Ml Udc PO 01/31/25 18:44 15 ml Q4HR NICOLAS Administration Diazepam 5 mg 12/31/24 03:06 Diazepam Inj 5 Mg/Ml Vial 2 Ml IVP Q2H PRN Breakthrough Agitation Folic Acid 1 mg 01/03/25 09:00 01/03/25 08:04 Folic Acid 1 Mg Tablet PO 02/02/25 08:59 1 mg QDAY NICOLAS Administration Ceftriaxone Sodium/Dextrose 1 gm in 50 mls @ 100 mls/hr 12/31/24 09:00 01/03/25 08:05 Rocephin/D5w 1gm Iv Premix IV 01/07/25 08:59 100 mls/hr QDAY NICOLAS Administration Octreotide Acetate 1,000 mcg/ 102 mls @ 5.1 mls/hr 01/01/25 18:26 01/02/25 14:56 Sodium Chloride IV 01/06/25 18:26 50 mcg/hr .Q20H NICOLAS 5.1 mls/hr Protocol Administration 50 MCG/HR Ondansetron HCl 4 mg 12/31/24 01:29 Ondansetron Inj 2 Mg/Ml Inj 2 Ml IVP 01/30/25 01:28 Q6H PRN NAUSEA OR VOMITING Protocol Pantoprazole Sodium 40 mg 12/31/24 01:30 01/03/25 08:04 Pantoprazole Inj 40 Mg Vial IVP 01/30/25 01:29 40 mg BID NICOLAS Administration Sucralfate 1 gm 01/01/25 21:00 01/03/25 05:51 Sucralfate Susp 1 Gm/10 Ml Udc PO 01/31/25 20:59 1 gm QID NICOLAS Administration Thiamine HCl 100 mg 01/03/25 09:00 01/03/25 08:04 Thiamine 100 Mg Tablet PO 02/02/25 08:59 100 mg QDAY NICOLAS Administration
[2025-01-03] MEDS: NAPH,KPH MBDB 1 PACKET (1.5 GM) 2 PACKET PO (10:15)
[2025-01-03 12:00] VITALS: BP 113/78; PULSE 103; PULSE 87; RESP 18; TEMP 36.7; O2SAT 97
--- NOTE | 2025-01-03 12:33 | ESDS_ITS ---
Planned Discharge Date 01/03/25 DS: Providers Provider Date of admission: 12/31/24 01:29 Primary care physician: Physician No Primary/Family Admitting Provider: Asmita Briggs MD Attending Provider on Admission: Keisha Marmolejo MD Consults: 12/31/24 01:35 Consult to Gastroenterology Stat Comment: Alcohol use disorder/ bloody emesis Consulting Provider: Destiney Rogel 12/31/24 01:39 Consult to Nephrology Stat Comment: Hyponatremia Consulting Provider: Angelia Herrera 12/31/24 08:10 [facility] Referral - Nutrition Routine Comment: Positive screening for nutrition needs. Attending Provider on DC: Jerome Quintanilla MD Discharging Provider: Jerome Quintanilla MD DS: Diagnosis Problem List Completed Was Problem List Reviewed/Reconciled?: Yes Hospital Course Hospital Course Hospital course: Sukumar Pires is a 54-year-old male with a history of alcohol use disorder, anxiety, and hypertension who was admitted for GI bleed and alcohol withdrawal. He was started on CIWA protocol along with scheduled librium that was able to be weaned off within two hospital nights. GI was consulted and patient underwent EGD that found a large Melina-Kruger tear at the GE junction that was oozing blood and was cauterized and an esophageal ulcer that was also oozing blood. He was started on sucralfate, maalox, and octreotide. Original plan was for patient to stay for total of 5 days on octreotide but given that hemoblogin had remained stable and patient was tolerating his diet well, decision was made that he was stable for discharge from GI perspective. Vital signs remained stable, CBC was stable as mentioned, and chem panel largely unremarkable and was deemed stable for DC from medicine standpoint as well. Diagnoses during admission: #Symptomatic hyponatremia, improving #Beer potomania #Alcohol use disorder, chronic #Transaminits Has chronic history of alcohol use disorder, drinks average 12-17 beers per day. Initial sodium of 120, osmolality 245 and likely secondary to beer potomania given history of heavy beer consumption. Initially overcorrected but now within range and no longer requiring IVF or frequent Na checks. ? Patient has had CIWA score 0-1 on checks during the past 24 hours. Thus chlordiazepoxide was discontinued. - No longer requiring IVF or frequent Na checks - Strict ins and outs - Nephrology consulted, appreciate recs - Thiamine 100 mg and folic acid 1 mg daily - CIWA protocol - Chlordiazepoxide 25 mg BID -discontinued #Upper versus lower GI bleed #Hematemesis #History of anxiety #History of hypertension #Hypophosphatemia #Hypocalcemia, resolved Discharge instructions: ? Prescribed sucralfate, maalox, and pantoprazole for your upper GI bleed ? Continue taking all other home medications as prescribed ? Follow-up with PCP within 1-2 weeks of discharge ? Follow-up with gastroenterology within 1-2 weeks of discharge ? If you do not have a PCP, you can follow-up at the [facility] (you can call [phone] to make an appointment) ? Return to ED if symptoms worsen or recur ----- Plan discussed with attending physician Dr. Jaleel Quintanilla MD PGY-2 Internal Medicine Time Spent with Patient Time attestation: Total time spent providing and/or coordinating discharge services: 34 min Time spent: Greater than 30 minutes Exam Vital Signs Temp Pulse Resp BP Pulse Ox O2 Del Method O2 Flow Rate 98.1 F 87 18 113/78 97 Room Air 3 01/03/25 12:00 01/03/25 12:00 01/03/25 12:00 01/03/25 12:00 01/03/25 12:01/03/25 12:00 01/01/25 18:35 Narrative Exam General: Alert, no acute distress.Conversational, WDWN, in no acute distress. Well-groomed. Skin: Warm, dry, intact. No rash or ecchymoses. Head: Normocephalic, atraumatic. Eye: Injected conjunctiva, negative for papilledema on funduscopy exam PERRL. Throat: mucosa moist. No obvious lesions in oropharynx. Cardiovascular: Regular rate and rhythm, no murmur, +S1/S2. Respiratory: Lungs are clear to auscultation, respirations unlabored, no crackle s, no wheezing. Gastrointestinal: Soft, nontender, non-distended. No guarding or rebound tenderness. Extremities: No edema, no cyanosis, no clubbing. Neuro: Alert and oriented x3.No focal deficits observed. Conversant, moving all extremities. No overt cerebellar signs/incoordination. Psychiatric: Cooperative, appropriate affect Discharge Plan Plan Patient Disposition: HOME (Self Care) Patient condition on transfer: Stable Care Plan Goals: ? Prescribed sucralfate, maalox, and pantoprazole for your upper GI bleed ? Continue taking all other home medications as prescribed ? Follow-up with PCP within 1-2 weeks of discharge ? Follow-up with gastroenterology within 1-2 weeks of discharge ? If you do not have a PCP, you can follow-up at the [facility] (you can call [phone] to make an appointment) ? Return to ED if symptoms worsen or recur Prescriptions/Referrals Prescriptions/Med Rec: New folic acid 1 mg Tablet 1 mg PO QDAY 30 Days Qty: 30 0RF pantoprazole 40 mg tablet,delayed release (DR/EC) 40 mg PO BID 30 Days Qty: 60 0RF sucralfate 1 gram tablet 1 g PO BID 30 Days Qty: 60 0RF thiamine mononitrate (vit B1) 100 mg Tablet 100 mg PO QDAY 30 Days Qty: 30 0RF alum-mag hydroxide-simeth 200-200-20 mg/5 mL suspension 15 ml PO Q6HR PRN (Reason: indigestion) 30 Days Qty: 5 3RF Referrals: No Primary/Family,Physician [Primary Care Provider] Patient/Caregiver Discharge Instructions Print Language: Sinhala Stand Alone Forms: Margaret Award Info., Patient Portal Info Letter Discharge Order Discharge Orders: Discharge (Routine); Ordered 01/03/25 Ordered By: Jerome Quintanilla Quality Discharge Quality Measures none (Presented with GI bleed) Attestestation MD Attestation I attest that I was physically present for the evaluation, physical examination, lab and imaging review of the patient with the residents. I discussed the case with the residents and agree with the findings and plans of care as documented above. Keisha Marmolejo MD
[2025-01-03 15:00] VITALS: BP 125/87; PULSE 86; RESP 18; TEMP 36.5; O2SAT 99
== END 2025-01-03 15:15 | disposition home or self-care (01) | DRG 426 ==
LOC: SERX 23:54 → SERHOLD 12-31 02:34 → S2NX 12-31 07:49
PROVIDERS: Nurse Practitioner Family; Specialist; Student in an Organized Health Care Education/Training Program; Admitting Provider Student in an Organized Health Care Education/Training Program; Emergency Provider Emergency Medicine; Visit Provider Student in an Organized Health Care Education/Training Program
PROC: 0DJ08ZZ Inspection of Upper Intestinal Tract, Via Natural or Artificial Opening Endoscopic (ICD-10-PCS; CPT 43239; principal; 2025-01-01 19:00)
DX: E87.1 Hypo-osmolality and hyponatremia (principal); K22.11 Ulcer of esophagus with bleeding; I10 Essential (primary) hypertension; F41.9 Anxiety disorder, unspecified; G43.909 Migraine, unspecified, not intractable, without status migrainosus; F10.239 Alcohol dependence with withdrawal, unspecified; R44.0 Auditory hallucinations; R44.1 Visual hallucinations; E86.0 Dehydration; K22.6 Gastro-esophageal laceration-hemorrhage syndrome; E83.39 Other disorders of phosphorus metabolism; E83.51 Hypocalcemia; E86.1 Hypovolemia; W18.30XA Fall on same level, unspecified, initial encounter
CPT/HCPCS: 36415; 70450; 76705; 80053; 80069; 80074; 80307; 80320; 81001; 82140; 82436; 82570; 82607; 82746; 83036; 83605; 83615; 83735; 84100; 84133; 84295; 84300; 84443; 84540; 85025; 85610; 85730; 86850; 86900; 86901; 93005; 96361; 96365; 96366; 96375; 99284; A4649; J0613; J0696; J1200; J1815; J2250; J2354; J2470; J3010; J3411; J3475; J3480; J3490; J7030; J7050; J7070; J7131; J7999; A9270; G0480